=== PATIENT | male | born 1970 | race Caucasian/White ===

== ENCOUNTER 2020-11-09 08:13 | Day surgery (SDC) | payer OTHER, SELFPAY ==
[2020-09-13 09:12] VITALS: BMI 33.7
--- NOTE | 2020-11-03 14:04 | EKG12_ITS ---
Test Reason : PRE SURGERY Blood Pressure : / mmHG Vent. Rate : 080 BPM Atrial Rate : 080 BPM P-R Int : 140 ms QRS Dur : 092 ms QT Int : 392 ms P-R-T Axes : 067 058 059 degrees QTc Int : 452 ms Normal sinus rhythm with sinus arrhythmia Normal ECG Confirmed by SAMI NUR, CARLOS ([id number]), film or videotape editor ANTOINE DAHL ([id number]) on 11/04/2020 9:21:21 AM Referred By: Eleazar He Confirmed By:CARLOS GALLARDO MD
[2020-11-08 13:47] LABS: Hematocrit 44.9 % (40-54); Mean Corp Hgb Conc 33.4 g/dL (32-36); Mean Corpuscular Hgb 29.1 pg (27.0-32.0); Mean Corpuscular Volume 87.2 fL (80-94); Mean Platelet Vol. 11.6 fl (6.2-12.0); Platelet Count 244 K/mm3 (150-450); RBC Distribution Width CV 13.5 % (11.6-14.6); RBC Distribution Width SD 42.3 fl (35.1-43.9); Red Blood Count 5.15 M/mm3 (4.6-6.2); White Blood Count 8.2 K/mm3 (4.4-11.0)
[2020-11-09] VITALS (7 sets, daily range): BP systolic 135–154; BP diastolic 79–89; PULSE 77–91; RESP 16–18; TEMP 36.3–37.4; O2SAT 93–97; BMI 33.5
[2020-11-09] MEDS: Lactated Ringers 1,000 ML 100 ML IV (09:04)
[2020-11-09] MEDS: Cefazolin 2 GM in 0.9% Normal Saline 100 ML IV (09:46)
[2020-11-09] MEDS: Epinephrine (1 mg/ml) 1 MG/ML VIAL (09:46)
--- NOTE | 2020-11-09 09:47 | HP.PCM_ITS ---
History and Physical Date of Admission: 11/09/20 Intake Intake Visit Reasons: right shoulder Chief Complaint: Right Shoulder Allergies CODIENE Adverse Reaction (Mild, Uncoded 09/27/20 08:54) Hematuria [facility] Medical History HTN (hypertension) (Chronic) Surgical History H/O umbilical hernia repair (Acute) History of cholecystectomy (Acute) History of tonsillectomy (Acute) Family History Mother Myocardial infarction Liver cancer Lymph node cancer Social History (Updated 10/22/20 @ 11:[address] Eleazar He DO) household members: spouse, children housing: house Smoking Status: Current every day smoker alcohol intake: current alcohol intake frequency: a few times a week what type of physical activity do you participate in: walking do you feel safe at home: Yes HPI right shoulder: Chief Complaint: Right Shoulder Details: Parts of this documentation were recorded by a scribe, this documentation accurately reflects the service provided and the decisions made by me, Dr. Eleazar He DO 10/22/20 0801. PINEDA LUIS is a 49 year old M here today for right shoulder pain. Patient states that the pain has worsened since his last visit. States that the pain is now constant and has frequent numbness and tingling going into fingers. Patient states that the injection was helpful for a week. Patient states that his joint pain has decreased but the muscular pain has increased. Patient would like to discuss scheduling surgery since the [place] will not approve physical therapy before a surgery. Ortho Exam General General: Yes no acute distress Neurologic: Yes alert Psychologic: Yes reasonable and appropriate Right Shoulder Skin/Wound: No ecchymosis, No erythema, No swelling Testing: Positive Speed's, TTP Biceps and Rice; negative TTP AC Joint SHOULDER: Right Shoulder Skin/Wound: No ecchymosis, No erythema, No swelling Testing: Positive Hawkin's, Neer's, AROM-Forward Elevation 0-180, AROM-External Rotation at side 0-60, PROM-Forward Elevation 0-180 (with pain) and belly press normal; negative TTP Biceps, TTP AC Joint, Drop Arm, Load and Shift or jerk SHOULDER: tenderness 3cm lateal to sternoclavicular joint. sternal click bursal click Supplemental Info 06/11/2020MRI right shoulder [facility]:Moderate cuff tendinopathy and peritendinobursitis outlet related impingement secondary to AC joint hypertrophy and lateral downsloping of type II acromion. Nondisplaced type II SLAP tear with associated capsulitis. Assessment & Plan Problems 1. Impingement syndrome of right shoulder M75.41 2. Anterior to posterior tear of superior glenoid labrum of right shoulder S43.431A Plan This patient patient has ongoing symptoms from his labral tear and impingement injection only helped temporarily and he states he is not getting approval for physical therapy which was recommended by the by myself but was [facility] at [facility] point patient wishes to proceed surgically with a subacromial decompression biceps tenotomy labral debridement. Educated that he cannot take any NSAIDS a week before surgery. Educated that he will need physical therapy and we will coordinate with the [facility] for [facility]. Educated that he will start physical therapy two weeks after the surgery. Educated on the length of surgery and recovery time. Educated that he will need to be tested for Covid-19 before the surgery. Follow up 2 weeks post-op or sooner if pain, swelling, numbness or associated symptoms, or concerns develop. Coding Level of Care Code Off vis,est,level 3 Diagnoses Impingement syndrome of right shoulder M75.41 Anterior to posterior tear of superior glenoid labrum of right shoulder S43.431A I have re-examined the patient. There are no clinical changes since date of exam Procedure Criteria Procedure Type: Elective COVID Risk Discussion: The surgeon/proceduralist and patient have discussed in detail the risk of exposure to and/or potential harm posed by the COVID-19 virus with having a surgery/procedure at this time versus the risk of delaying the surgery/procedure. It is not possible to know either the risk of delaying the surgery or procedure or chance of getting an infection with perfect accuracy, but a joint decision was made between the patient and the surgeon/proceduralist to proceed at this time with the scheduled surgery/procedure as indicated on the consent form.
[2020-11-09] MEDS: Bupiv/Epi 0.5% Mpf 30 ML Vial (10:20)
[2020-11-09] MEDS: MethylPREDNISolone Acetate 40 MG/ML Vial IM (10:40)
[2020-11-09] MEDS: Bupivacaine Mpf 0.5% 30 ML VIAL (10:40)
[2020-11-09] MEDS: morphine PF (epidural) 5 MG/10 ML Vial (10:40)
--- NOTE | 2020-11-09 10:48 | PCM.DC.ORTHO ---
Discharge Diet: No Restrictions Keep extremity elevated above heart level: Operative Extremity Call your doctor if you observe: Shortness of breath, Chest pain Additional Instructions: Leave the dressing on and intact for 48 hours. Then may remove and shower with warm water and antibacterial soap. But do not submerge in tub for 3 weeks. ice shoulder 15 min on and 15 mins off next 72 hrs. May remove sling for elbow range of motion and pendulum exercises may preform active range of motion of shoulder when pain allows. discontinue sling over the course to the week as pain allow. DC completely by 1 week. Do not lift push or pull greater then 5 lbs with operative extremity. Encourage finger and wrist range of motion. If any concerns call Dr. He's office. Allergies/Adverse Reactions: Allergies codeine Allergy (Verified 11/09/20 08:33) Other HEMATURIA Medications to take at Discharge atorvastatin 20 mg tablet 20 mg PO DAILY tab 09/13/20 cholecalciferol (vitamin D3) 50 mcg (2,000 unit) tablet 1 tab PO DAILY 09/13/20 loratadine 10 mg tablet 10 mg PO DAILY 09/27/20 Albuterol IH (ProAir) [Proair Hfa (SP)Vent Pts] 1 - 2 puff INHALATION Q6H PRN PRN 11/02/20 Lisinopril [Zestril] 5 mg PO DAILY 11/02/20 Acetaminophen [Tylenol Extra Strength] 1,000 mg PO Q6H PRN #50 tab 11/09/20 Oxycodone [Oxyir] 5 mg PO Q4H PRN PRN #45 tablet 11/09/20 The following prescriptions were given: Oxycodone [Oxyir] 5 mg PO Q4H PRN PRN #45 tablet PRN Reason: Pain Score 6-10 Transmission Status: Sent to [facility] Acetaminophen [Tylenol Extra Strength] 1,000 mg PO Q6H PRN #50 tab Transmission Status: Pending to [facility] [[facility] - Test Results: Test results from this visit will be discussed in further detail at your follow-up appointment, if applicable. Please Follow Up With: Eleazar He DO - 2 weeks
--- NOTE | 2020-11-09 10:50 | PCM.OPRPT ---
Report of Operation Date of Procedure: 11/09/20 Description of Surgical Findings:: Preoperative diagnosis: [right shoulder impingement, type II SLAP tear Postoperative diagnosis: Right shoulder impingement , type II SLAP tear undersurface tearing anterior leading edge of rotator cuff supraspinatus Procedure: Arthroscopic labral debridement biceps tenotomy rotator cuff debridement subacromial decompression acromioplasty Anesthesia: General with interscalane block; EBL: 10 cc Complications: none Indication for procedure: 50-year-old male patient who has had ongoing shoulder pain who has failed extensive conservative treatment who did have MRI evidence of anterior acromial spurring with impingement on exam and radiographically as well as a type II SLAP tear. Failed injection therapy and physical therapy , patient did wish to proceed with an arthroscopic subacromial decompression biceps tenotomy labral debridement and surgery as indicated. risks benefits and alternatives of the procedure were reviewed including risk of bleeding infection nerve artery tissue damage need for further surgery continued pain postoperative stiffness and need for postoperative physical therapy and continued pain. Procedure : Patient was met in the preoperative holding area the operative extremity was identified by both the patient and the physician and was marked. Patient was met by anesthesia and brought back to the operating room on a wheeled cart. She was transferred to the operating table in the supine position. Anesthesia was started. Patient was then positioned in the beachchair configuration. Bony prominences were well-padded. The patient was prepped and draped in the usual sterile fashion. A timeout was called to ensure the proper patient procedure and extremity were being contemplated. Anatomic landmarks were palpated and marked with a marking pen. A 0.25% Marcaine with epinephrine was injected into the planned portal sites. An 11 blade scalpel was used to make a stab incision in the posterior lateral portal. Arthroscope was inserted into the glenohumeral space with ease. Inflow and outflow tubes were attached and arthroscopic visualization began. An anterior portal was established with an 18-gauge spinal needle. There was noted to be a type II SLAP tear combined with a type I peelback sign was demonstrated the labrum was debrided with a shaver and a biceps tenotomy was performed with a ArthroCare wand the arthroscope was then repositioned into the subacromial space there was significant bursal thickening as well as a large anterior acromial spur as well as spurring inferior to the clavicle decompression of bursal tissue as well as acromioplasty were performed there is large anterior acromial spurring which was removed bursal side of the cuff was evaluated and there was no full-thickness tear seen or palpated with probe probe the wound was thoroughly irrigated through the scope followed by a subacromial injection with 40 mg Depo-Medrol 4 mg of morphine and 8 cc of 0.5% Marcaine plain. Suture portals were closed with 3-0 nylon arthroscopic stitches followed by Xeroform 4 x 4 ABD and a Ioban dressing. A regular sling was placed. Anesthesia was reversed and patient tolerated the procedure well was and was transferred to the PACU all counts were correct patient will follow-up in the office in 2 weeks patient may begin active range of motion immediately
== END 2020-11-09 13:04 | disposition home or self-care (01) ==
LOC: SDC 08:14 → AC 08:14
PROVIDERS: Anesthesiology; Referring Provider Orthopaedic Surgery; Visit Provider Orthopaedic Surgery
PROC: (CPT 29827; principal; 2020-11-09 09:40)
DX: S43.431A Superior glenoid labrum lesion of right shoulder, initial encounter (principal); M75.41 Impingement syndrome of right shoulder; Z20.822 Contact with and (suspected) exposure to COVID-19; X58.XXXA Exposure to other specified factors, initial encounter; Y93.9 Activity, unspecified; Y92.9 Unspecified place or not applicable; Y99.9 Unspecified external cause status; I10 Essential (primary) hypertension; E78.00 Pure hypercholesterolemia, unspecified; F32.9 Major depressive disorder, single episode, unspecified; F17.200 Nicotine dependence, unspecified, uncomplicated
CPT/HCPCS: 29822; 29826; 64415; 36415; 85027; 87426; 93005; C9803; J7120; J2405

== ENCOUNTER → 2022-05-16 | Outpatient (CLI) | payer OTHER, SELFPAY ==
--- NOTE | 2022-05-16 07:00 | RAD_ITS ---
STUDY: X-RAY - ORBITS REASON FOR EXAM: Male, 51 years old pre MRI clearance. History of metal to eye. TECHNIQUE: 2 view(s) of the orbits were obtained. COMPARISON: Prior comparison studies are not available for review at this time. FINDINGS: Normal bilateral orbits without a metallic orbital foreign body. Normal visualized facial bones. Normal paranasal sinuses. The soft tissue structures are unremarkable. RAD/Orbits for Foreign Body IMPRESSION: No demonstrated metallic orbital foreign body. Electronically Signed: Maria Dolores Agarwal MD at 7:50 EDT ,
--- NOTE | 2022-05-16 07:05 | MRI_ITS ---
ACR Level 3 findings have been noted. An addendum which confirms receipt of the report will follow. STUDY: MRI RIGHT SHOULDER REASON FOR EXAM: Right shoulder pain, numbness, prior surgery. TECHNIQUE: Standardized fat and water weighted pulse sequences were obtained in all 3 orthogonal planes. COMPARISON: None. FINDINGS: Normal supraspinatus tendon. Normal infraspinatus tendon. Normal subscapularis tendon. Normal teres minor tendon. Normal supraspinatus muscle. Normal infraspinatus muscle. Normal subscapularis muscle. Normal teres minor muscle. Normal glenohumeral articulation. Normal humeral head and visualized proximal humerus. There is nonvisualization of the intracapsular long biceps tendon, either secondary to tear or biceps tenotomy. There is a small tear of the superior labrum (T2 coronal images 12, 13). Normal capsulo- ligamentous complex. There is no paralabral cyst. There is mild acromioclavicular arthrosis without undersurface osteophytes (T2 sagittal image 9). There is a Type II morphology (curved), with a neutral orientation. There is no subacromial-subdeltoid bursal fluid. Normal visualized coracohumeral and coracoacromial ligaments. There is an axillary lymph node measuring 2.6 cm in length. Normal deltoid muscle. Normal trapezius muscle. MRI/Upper Ext Joint Only(Routine) IMPRESSION: Nonvisualization of the intracapsular long biceps tendon, either secondary to tear or biceps tenotomy. Small superior labral tear. Mild acromioclavicular arthrosis. Enlarged axillary lymph node. No demonstrated rotator cuff tear. Electronically Signed: Temo Reddy MD at 8:41 EDT ,
== END | disposition home or self-care (01) ==
DX: M25.511 Pain in right shoulder (principal)
CPT/HCPCS: 70030; 73221

== ENCOUNTER → 2022-06-09 | Outpatient (CLI) | payer OTHER, SELFPAY ==
--- NOTE | 2022-06-09 17:47 | CT_ITS ---
EXAM: CT CHEST, ABDOMEN AND PELVIS WITH INTRAVENOUS CONTRAST CLINICAL INDICATION: ABD PAIN, RT AXILLARY ENLARGED LYMPH NODE TECHNIQUE: Helically acquired images were obtained of the chest, abdomen and pelvis with intravenous contrast. This CT exam was performed using one or more of the following dose reduction techniques: automated exposure control, adjustment of the mA and/or kV according to patient size, and/or use of iterative reconstruction technique. This report was created using [employer] report generation technology. CONTRAST: Oral and amp; IV Readi-CAT and amp; 100mL Isovue-300 RADIATION DOSE: CTDIvol = 20.05 mGy, DLP = 2186.11 mGy-cm COMPARISON: 07/27/2015 FINDINGS: CHEST: LUNGS AND PLEURAL SPACES: Unremarkable. No mass. No consolidation or edema. No pleural effusion or thickening. No pneumothorax. HEART: There are calcifications of the coronary arteries. Heart size is normal. No pericardial effusion. MEDIASTINUM: See below. THYROID: Unremarkable. No thyroid lesions. ABDOMEN: LIVER: There is intrahepatic ductal dilation. GALLBLADDER AND BILE DUCTS: The gallbladder is surgically absent. PANCREAS: Unremarkable. No focal cystic or solid mass. SPLEEN: Unremarkable. Normal size without focal cystic or solid mass. ADRENALS: Unremarkable. No nodules. KIDNEYS AND URETERS: Unremarkable. Normal renal size and position. No hydronephrosis. STOMACH AND BOWEL: There is an umbilical hernia containing fat. There is no bowel involvement. There is no incarceration. There is no findings suggesting that this is causing a bowel obstruction. There is a left inguinal hernia containing fat. There is no bowel involvement. There is no incarceration. There is no findings suggesting that this is causing a bowel obstruction. No focal inflammatory change. PELVIS: APPENDIX: The appendix is visualized and is normal. BLADDER: Unremarkable. REPRODUCTIVE: Unremarkable as visualized. No mass. CHEST, ABDOMEN and PELVIS: INTRAPERITONEAL SPACE: Unremarkable. No ascites or other fluid collection. No free air. BONES/JOINTS: There are degenerative changes of the shoulders. There are multi-level degenerative changes of the thoracic spine. No suspicious lytic or blastic abnormality. SOFT TISSUES: See above. VASCULATURE: There is atherosclerotic calcification of the aortic arch with tortuosity and elongation of the aortic arch and descending thoracic aorta. Aorta is non-dilated. No aortic dissection. No obvious central pulmonary embolism although this study was not performed with the pulmonary embolism protocol. LYMPH NODES: Right and left axillary adenopathy. Multiple subcentimeter lymph nodes in the mediastinum. These may be reactive. CT/CT Chest, Abd, Pel w/Contrast IMPRESSION: 1. There are calcifications of the coronary arteries. 2. Right and left axillary adenopathy. 3. The gallbladder is surgically absent. Electronically Signed: Te Villanueva MD at 21:04 EDT ,
[2022-06-12 09:48] LABS: CREATININE FINGERSTICK 1.19 mg/dL (0.70-1.30); EGFR FINGERSTICK > 60 mL/min (>60)
== END | disposition home or self-care (01) ==
LOC: CT 17:44
DX: R59.0 Localized enlarged lymph nodes (principal)
CPT/HCPCS: 71260; 74177; Q9967

== ENCOUNTER → 2022-08-28 | Outpatient (CLI) | payer OTHER, SELFPAY ==
--- NOTE | 2022-08-28 11:23 | MRI_ITS ---
EXAM: MR CERVICAL SPINE WITHOUT INTRAVENOUS CONTRAST CLINICAL INDICATION: MYELOPATHY TECHNIQUE: Multiplanar and multisequence MR images of the cervical spine without intravenous contrast were performed. This report was created using [employer] report generation technology. COMPARISON: None. FINDINGS: VERTEBRAE: Loss of the normal cervical lordosis which may be due to muscle spasm or head positioning. Normal craniocervical junction and cervicothoracic junction. No spondylolisthesis. SPINAL CORD: Unremarkable in signal and morphology. SOFT TISSUES: Normal. No prevertebral soft tissue swelling. LYMPH NODES: Normal. There is no cervical adenopathy. DISCS/SPINAL CANAL/NEURAL FORAMINA: C2-C3: Normal. Normal disc height and morphology. Normal spinal canal. Normal neuroforamina. C3-4 Central disc protrusion causes mild impression on the thecal sac. Moderate narrowing of the right neural foramen related to uncinate joint hypertrophy. Normal spinal canal. C4-5: Mild narrowing of the right neural foramen related to uncinate joint hypertrophy. Normal spinal canal. C5-6: Prominent right central disc osteophyte complex causes [id number] compression of the thecal sac and severe narrowing of the right neural foramen. Normal spinal canal. C6-7: Left central disc osteophyte complex causes mild narrowing of the left lateral recess and mild/moderate narrowing of the left neural foramen. C7-T1: Normal. Normal disc height and morphology. Normal spinal canal. Normal neuroforamina. MRI/Spine Cervical (Routine) IMPRESSION: 1. Moderate narrowing of the right C3-4 and mild narrowing of the right C4-5 neural foramina related to uncinate joint hypertrophy. 2. Mild to moderate C5-6 spinal stenosis and severe right C5-6 neural foraminal narrowing related to large disc osteophyte complex. 3. Mild narrowing of the left C6-7 lateral recess and mild to moderate narrowing of the left C6-7 neural foramen related to disc osteophyte complex. 4. No evidence of cervical cord lesion. Electronically Signed: Josue Rain MD at 16:57 EST ,
== END | disposition home or self-care (01) ==
LOC: MRI 10:59
DX: M54.2 Cervicalgia (principal)
CPT/HCPCS: 72141

== ENCOUNTER → 2023-08-29 | Outpatient (CLI) | payer OTHER, SELFPAY ==
--- NOTE | 2023-08-29 07:45 | CT_ITS ---
STUDY: LOW DOSE CT LUNG CANCER SCREENING REASON FOR EXAM: Male, 52 years old. TOBACCO DEPENDANCE. Patient smoked 1 pack per day for 20 years. RADIATION DOSAGE (If Supplied By Facility): CTDIvol = ( 4.02 ) mGy, DLP = ( 145.47 ) mGycm TECHNIQUE: No contrast was administered. Low dose technique was utilized (average mAS-38 and kVp 120). 1.25 mm axial source images with a slice interval of 1.25-mm were reconstructed in lung windows. 2.5 mm axial source images with a slice interval of 2.5-mm were reconstructed in lung windows. 5.0 mm axial source images with a slice interval of 5.0-mm were reconstructed in soft tissue windows. COMPARISON: Comparison is made with prior study June 09, 2022. NODULES: No suspicious nodules are seen. Emphysema: No significant emphysematous changes are seen. Endobronchial lesion: Unremarkable Aorta: Unremarkable. CORONARY ARTERIES: Coronary artery calcification is seen. Heart: Unremarkable Pulmonary artery: Unremarkable Mediastinal nodes: Small mediastinal nodes. Other chest and abdominal findings: CT/Low Dose CT Lung Screening IMPRESSION: Lung-RADS category 2 - Continue annual screening with LDCT in 12 months. IMPORTANT NOTES FOR USE: ACR Lung-RADS Version 1.1 Assessment Categories Release Date: 2018 Category: Coded 0-4 bases on nodule(s) with highest degree of suspicion. Negative screen is defined as categories 1 and 2; a positive screen is defined as categories 3 and 4. Category 3 and 4A nodules that are unchanged on interval CT should be coded as category 2, and individuals returned to screening in 12 months. Category 4X: Category 3 or 4 nodules with additional imaging findings that increase the suspicion of lung cancer, such as spiculation, GGN that doubles in size in 1 year, enlarged lymph notes, etc. Category Modifiers: S (significant finding unrelated to lung cancer) Electronically Signed: Jacinto Hutchinson MD at 15:02 EST ,
== END | disposition home or self-care (01) ==
DX: F17.200 Nicotine dependence, unspecified, uncomplicated (principal); E11.9 Type 2 diabetes mellitus without complications; I10 Essential (primary) hypertension; Z79.84 Long term (current) use of oral hypoglycemic drugs; Z79.899 Other long term (current) drug therapy
CPT/HCPCS: 71271

== ENCOUNTER → 2023-09-26 | Outpatient (CLI) | payer OTHER, SELFPAY ==
--- OUTSIDE RECORDS SUMMARY | 2023-09-26 11:33 | XMS RPT_ITS | CCD ---
Author Name Unknown Address [address] [place] [address] Organization [facility] Care Team Providers Care Lapel Padder Name Role Phone Unavailable Unavailable Unavailable BETH SINGH Unavailable Unavailable BETH SINGH Unavailable Unavailable ASHLEE BARTLETT Unavailable Unavailable BETH SINGH Unavailable Unavailable BETH SINGH Unavailable Unavailable BETH SINGH Unavailable Unavailable Unavailable Primary Care Provider Unavailabl e Unavailable Primary Care Provider Unavailabl e Unavailable Primary Care Provider Unavailabl e LUCERO LEA Referring Unavai lable MIDDELDORF, LUCERO LI Referring Unavai lable MIDDELDORF, LUCERO LI Referring Unavai lable Allergies Allergy Classification Reported Allergen(s) Allergy Type Date of Onset Reaction(s) Facility (10 sources) codeine; Translations: [CODEINE] Drug Allergy 09-01-2005 Other (See Comments), Other: See Comments [facility] Medications Current Medications Medication Drug Class(es) Dates Sig (Normalized) Sig (Original) predniSONE 20 mg oral tablet (1 source) Start: 01-31-2022 End: 02-05-2022 take 2 tablets by mouth once daily predniSONE (DELTASONE) 20 mg tablet Take 2 tablets by mouth once daily for 5 days. 10 tablet 0 01/31/2022 02/05/2022 Active Completed/Discontinued Medications Medication Drug Class(es) Dates Sig (Normalized) Sig (Original) amLODIPine 5 mg oral tablet (4 sources) Dihydropyridine Calcium Channel Brenda Start: 12-07-2021 amLODIPine (NORVASC) 5 mg tablet atorvastatin 20 mg oral tablet (4 sources) HMG-CoA Reductase Inhibitor Start: 12-07-2021 atorvastatin (LIPITOR) 20 mg tablet benzonatate 100 mg oral capsule (6 sources) Non-narcotic Antitussive Start: 01-31-2022 benzonatate (TESSALON PERLE) 100 mg capsule Take 1-2 capsules tid prn, no more than 6 in 24 hours. 30 capsule 0 01/31/2022 Active Problems Active Problems Problem Classification Problem Date Documented Date Episodic/Chronic Anxiety disorders (5 sources) Posttraumatic stress disorder; Translations: [Post-traumatic stress disorder, unspecified] Onset: 05-07-2015 05-07-2015 Chronic Chronic obstructive pulmonary disease and bronchiectasis (5 sources) Acute exacerbation of chronic obstructive airways disease with asthma; Translations: [Chronic obstructive pulmonary disease with (acute) exacerbation] Onset: 10-02-2016 10-02-2016 Chronic Chronic obstructive pulmonary disease and bronchiectasis (4 sources) Bronchitis; Translations: [Bronchitis, not specified as acute or chronic] Onset: 08-29-2022 Episodic Essential hypertension (5 sources) Hypertensive disorder; Translations: [Essential (primary) hypertension] Onset: 05-07-2015 05-07-2015 Chronic Other circulatory disease (1 source) Pulmonary congestion ; Translations: [Other specified symptoms and signs involving the circulatory and respiratory systems] Episodic Other lower respiratory disease (1 source) Cough; Translations: [Cough] Episodic Other lower respiratory disease (1 source) Wheezing; Translations: [Wheezing] Episodic Other male genital disorders (1 source) Azoospermia Episodic Other male genital disorders (4 sources) Other male infertility; 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] Onset: 07-03-2018 Episodic Other male genital disorders (2 sources) Organic azoospermia; 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] Onset: 07-03-2018 Episodic Other upper respiratory disease (5 sources) Seasonal allergy; Translations: [Other seasonal allergic rhinitis] Onset: 05-07-2015 05-07-2015 Chronic Residual codes; unclassified (5 sources) Obstructive sleep apnea syndrome; Translations: [Obstructive sleep apnea (adult) (pediatric)] Onset: 05-07-2015 09-19-2021 Chronic Substance-related disorders (5 sources) Smoker; Translations: [Nicotine dependence, unspecified, uncomplicated] Onset: 05-07-2015 09-19-2021 Chronic Unclassified (1 source) Unknown / UNK(Unknown) Onset: 07-23-2018 Past or Other Problems Problem Classification Problem Date Documented Date Episodic/Chronic Biliary tract disease (5 sources) Chronic cholecystitis without calculus; Translations: [Chronic cholecystitis] Onset: 07-21-2015 07-21-2015 Episodic Conditions associated with dizziness or vertigo (5 sources) Vertigo; Translations: [Dizziness and giddiness] Onset: 05-07-2015 05-07-2015 Episodic Immunizations and screening for infectious disease (5 sources) Mantoux: positive; Translations: [Nonspecific reaction to tuberculin skin test without active tuberculosis] Onset: 05-07-2015 05-07-2015 Episodic Neoplasms of unspecified nature or uncertain behavior (5 sources) Neoplasm of uncertain behavior of skin of neck; Translations: [Neoplasm of uncertain behavior of skin] Onset: 05-07-2015 05-07-2015 Episodic Other ear and sense organ disorders (5 sources) Tinnitus; Translations: [Tinnitus, unspecified ear] Onset: 05-07-2015 05-07-2015 Episodic Other skin disorders (5 sources) Vesicular eczema; Translations: [Dyshidrosis [pompholyx]] Onset: 05-07-2015 05-07-2015 Episodic Other upper respiratory disease (5 sources) Nasal deviation, bone; Translations: [Deviated nasal septum] Onset: 05-07-2015 05-07-2015 Episodic Unclassified (1 source) 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 Unclassified (1 source) OBSTRUCTIVE 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 Onset: 07-23-2018 Results Test Name Value Interpretation Reference Range Facil ity Vital Signs Date Time Vital Sign Value Performing Clinician Eunice edouard 01-31-2022 19:25-0400 Body temperature 98.6 [degF] Mali Tomlinson APRN.TOW TRUCK DRIVER Work Phone: [facility] 01-31-2022 19:25-0400 Body weight 111.31 kg Mali Tomlinson APRN.AILYN Work Phone: [facility] 01-31-2022 19:25-0400 Diastolic blood pressure 82 mm[Hg] Mali Tomlinson APRN.TOW TRUCK DRIVER Work Phone: [facility] 01-31-2022 19:25-0400 Heart rate 99 /min Mali Tomlinson APRN.CNP Work Phone: [facility] 01-31-2022 19:25-0400 Respiratory rate 18 /min Mali Tomlinson APRN.TOW TRUCK DRIVER Work Phone: [facility] 01-31-2022 19:25-0400 SaO2% (BldA) [Mass fraction] 96 % Mali Tomlinson APRN.TOW TRUCK DRIVER Work Phone: [facility] 01-31-2022 19:25-0400 Systolic blood pressure 136 mm[Hg] Mali Tomlinson APRN.TOW TRUCK DRIVER Work Phone: [facility] 07-03-2018 13:28-0400 BMI (Body Mass Index) 32.08 kg/m2 [facility] 07-03-2018 13:28-0400 BP Diastolic 91 mm[Hg] [facility] 07-03-2018 13:28-0400 BP Systolic 143 mm[Hg] [facility] 07-03-2018 13:28-0400 Height 180.3 cm [facility] 07-03-2018 13:28-0400 Pulse (Heart Rate) 90 /min [facility] 07-03-2018 13:28-0400 Weight 104.33 kg [facility] Encounters Encounter Date Encounter Type Care Provider Facility Start: 08-29-2022 End: 08-29-2022 ambulatory LUCERO LEA Pulmonary Funct ion Lab Procedures Date Procedure Procedure Detail Performing Clinician Start: 08-29-2022 Brncdilat rspse spmt ry pre&post-brncdilat admn Provider [facility] Start: 11-23-2021 CT LUNG SCREEN DAVID Wynne Work Phone: Start: 06-16-2016 Adult depression screening assessment Provider [facility] Plan of Treatment Date Care Activity Detail Author Start: 02-24-2023 Tetanus vaccination Tetanus: Every 10yrs [facility] Start: 02-24-2023 Urine microalbumin profile DTAP,TDAP,TD (2 - Td or Tdap) [facility] Start: 11-23-2022 Influenza vaccination LUNG CANCER SCREENING [facility] Start: 05-25-2022 Influenza vaccination [facility] Start: 01-31-2022 End: 02-14-2022 Influenza virus A and B RNA and SARS-CoV-2 (COVID-19) N gene panel - Respiratory specimen by MANE with probe detection COVID WITH FLUA+B, ROUTINE Microbiology Routine Cough Chest congestion Expected: 01/31/2022, Expires: 02/14/2022 [facility] Work Phone: Immunizations Immunization Date Immunization Notes Care Provider Marlen wilks 02-24-2013 tetanus toxoid, redu jigar diphtheria toxoid, and acellular pertussis vaccine, adsorbed Provider [facility] Work Phone: Payers Date Payer Category Payer Unknown [id number] 2021 Unknown [id number] 2019 Unknown 2019 Unknown MMO MMO [employer] [id number] 2019-Present [phone] [address] [place] [address] PPO [id number] 2019 Unknown [id number] 1970 Unknown [id number] 1970 Unknown [id number] 1970 Unknown [id number] Unknown [id number] Social History Date Type Detail Facility Start: 07-13-2015 End: 07-03-2018 Tobacco smoking status NHIS Current every day smoker [facility] Work Phone: History of tobacco use Cigar Smoker [facility] Start: 1970 Sex Assigned At Not on file [facility] Start: 07-13-2015 End: 07-03-2018 Tobacco use and exposure Never used [facility] Start: 07-03-2018 End: 01-31-2022 Alcohol intake Current drinker of alcohol (finding) [facility] Start: 07-03-2018 [facility] Start: 05-07-2015 End: 01-31-2022 Cigarettes smoked current (pack per day) - Reported 1 [facility] Start: 07-13-2015 History SDOH Alcohol Comment 2-3 beers/week [facility] Start: 01-21-2022 End: 01-31-2022 Exposure to SARS-CoV-2 (event) Not sure [facility] Work Phone: History of tobacco use Cigarette Smoker [facility] Work Phone: Progress note 08-29-2022 Note Date & Type Note Facility 08-29-2022 Note HNO ID: [id number] Author: Thelma Coffey RRT Service: ? Author Type: Registered Resp Therapist Type: Progress Notes Filed: 08/29/2022 11:58 AM Note Text: PULM FUNCTION SMARTBLOCK: Spirometry w/BD: 1 DLCO: 1 LV - Box: 1 [facility] History of Present illness Narrative 08-29-2022 Thelma Coffey RRT - 08/29/2022 11:57 AM EST Note Date & Type Note Facility 08-29-2022 History of Presen t illness Narrative PULM FUNCTION SMARTBLOCK: Spirometry w/BD: 1 DLCO: 1 LV - Box: 1 documented in this encounter [facility] Influenza virus A and B RNA and SARS-CoV-2 (COVID-19) N gene panel MANE+probe (Resp) 01-31-2022 Note Date & Type Note Facility 01-31-2022 Influenza virus A and B RNA and SARS-CoV-2 (COVID-19) N gene panel MANE+probe (Resp) COVID 19 RESULT: SARS-CoV-2 (Agent of COVID-19) Not Detected by RT-PCR or equivalent method. leigh [id number] [employer] (ROYA)_EUA This test was developed and its performance characteristics determined by [facility]'s [facility] [place]. This test has been authorized by FDA under an Emergency Use Authorization (EUA). This test has been validated in accordance with the FDA's Guidance Document Policy for Diagnostics Testing in Laboratories Certified to Perform High Complexity Testing under CLIA prior to Emergency use Authorization for Coronavirus Disease 2019 during the Public Health Emergency issued on November 22, 2019. Test performed by [facility], [facility] [place], [address], [place], [place] [address]. INFLUENZA A PCR: Negative for Influenza A by RT-PCR INFLUENZA B PCR: Negative for Influenza B by RT-PCR [facility] Progress note 01-31-2022 Note Date & Type Note Facility 01-31-2022 Note HNO ID: [id number] Author: Mali Tomlinson APRN.TOW TRUCK DRIVER Service: ? Author Type: Nurse Practitioner Type: Progress Notes Filed: 01/31/2022 8:07 PM Note Text: Subjective The history is provided by the patient. No test engineering intern was used. HPI Pineda Mills is a 51 year old male who presents today for CC of cough, chest congestion and body aches. He has tried sudafed, mucinesx without relief. He is a smoker. He does have an albuterol inhaler and has not used it. He has never been diagnosed with COPD BP 136/82 Pulse 99 Temp 37 ?C (98.6 ?F) (Tympanic) Resp 18 Wt 111.3 kg (245 lb 6.4 oz) SpO2 96% BMI 34.23 kg/m? Social History Tobacco Use - Smoking status: Current Every Day Smoker Packs/day: 1.00 Years: 35.00 Pack years: 35.00 - Smokeless tobacco: Never Used Substance Use Topics - Alcohol use: Yes Alcohol/week: 2.5 standard drinks Types: 1 Cans of Beer (12oz) per week Comment: 2-3 beers/week - Drug use: No PAST MEDICAL HISTORY Diagnosis Date - Asthma - Deviated nasal bone 05/07/2015 - Eczema, dyshidrotic 05/07/2015 - HTN (hypertension) 05/07/2015 - Obstructive sleep apnea 05/07/2015 On CPAP - Positive PPD, treated 05/07/2015 - PTSD (post-traumatic stress disorder) 05/07/2015 - Seasonal allergies 05/07/2015 - Smoker 05/07/2015 Started at age 14 up to a 1 PPD (had quit for about 10 yrs) I have confirmed and edited as necessary, the [facility] Review of Systems Constitutional: Positive for malaise/fatigue. Negative for chills and fever. HENT: Positive for congestion and sinus pain. Negative for ear pain and sore throat. Respiratory: Positive for cough, shortness of breath and wheezing. Negative for sputum production. Cardiovascular: Negative for chest pain. Gastrointestinal: Negative for abdominal pain, diarrhea, nausea and vomiting. Musculoskeletal: Negative for myalgias. Neurological: Negative for headaches. Objective Physical Exam Vitals and nursing note reviewed. HENT: Head: Normocephalic and atraumatic. Right Ear: Tympanic membrane, ear canal and external ear normal. Left Ear: Tympanic membrane, ear canal and external ear normal. Nose: No mucosal edema or rhinorrhea. Right Sinus: No maxillary sinus tenderness or frontal sinus tenderness. Left Sinus: No maxillary sinus tenderness or frontal sinus tenderness. Mouth/Throat: Pharynx: Uvula midline. No oropharyngeal exudate or posterior oropharyngeal erythema. Tonsils: No tonsillar abscesses. Cardiovascular: Rate and Rhythm: Normal rate and regular rhythm. Heart sounds: Normal heart sounds. Pulmonary: Effort: Pulmonary effort is normal. Breath sounds: Wheezing present. No decreased breath sounds, rhonchi or rales. Lymphadenopathy: Head: Right side of head: No submental, submandibular, tonsillar or preauricular adenopathy. Left side of head: No submental, submandibular, tonsillar or preauricular adenopathy. Cervical: No cervical adenopathy. Right cervical: No superficial cervical adenopathy. Left cervical: No superficial cervical adenopathy. ASSESSMENT/PLAN: 1. Cough - ICD9: 786.2, ICD10: R05.9 (primary diagnosis) Tiana barber as prescribed Home isolation Testing ordered Comfort measures discussed - see patient instructions. When to seek higher level of care Notified in 24-48 hours with results, available on mychart - COVID WITH FLUA+B, ROUTINE 2. Chest congestion - ICD9: 786.9, ICD10: R09.89 mucinex - COVID WITH FLUA+B, ROUTINE 3. Wheezing - ICD9: 786.07, ICD10: R06.2 Prednisone 40 mg (2-20mg tablets) po QD for 5 days Albuterol inhaler Diagnosis and treatment plan were discussed and questions were answered to the patient's satisfaction. Pt acknowledged understanding of concepts and follow up plan. Specific signs and symptoms that would indicate the need for higher level of care were discussed in detail warranting prompt ER evaluation. Mali Tomlinson APRN.CNP [facility] 01-31-2022 Patient Instructions Note Date & Type Note Facility 01-31-2022 Instructions Mali Tomlinson APRN.CNP - 01/31/2022 7:58 PM EDT covid test ordered You will be notified in 24 -48 hours, results available on [facility] Home isolation until covid results are back Rest, increase water intake Motrin or Tylenol as needed for fever or pain. Salt water gargles, chloraseptic spray or lozenges as needed for sore throat. Warm beverages, honey. Nasal saline spray as needed Cool mist humidifier at night Tylenol (generic acetaminophen) 500 mg-2 tabs every 8 hrs. as needed for fever and aches Ibuprofen 600 mg (3-200mg tablets) every 6 hours * Prednisone 40 mg (2 tablets) per day for 5 days, take in morning or early in day * Do not NSAIDs during this 5 day course (ibuprofen, naproxen, Motrin, Aleve, Advil) Tylenol only during prednisone use * Follow up with primary care provider if no improvement with treatment Albuterol inhaler 2 puffs every 4 hours Tessalon Perles 1-2 every 8 hours, do not combine this with robitussin or delsym * Seek medical care immediately, call 911, go to ER if you have chest pain, difficulty breathing, shortness of breath, inability to swallow. -Mucinex (generic is fine) Guaifenesin 1200 mg twice daily to help with cough and to thin out mucus * Seek medical care immediately, call 911, go to ER if you have chest pain, difficulty breathing, shortness of breath, inability to swallow. documented in this encounter [facility] History of Present illness Narrative 01-31-2022 Mali Tomlinson APRN.CNP - 01/31/2022 7:54 PM EDT Note Date & Type Note Facility 01-31-2022 History of Presen t illness Narrative Subjective The history is provided by the patient. No test engineering intern was used. HPI Pineda Mills is a 51 year old male who presents today for CC of cough, chest congestion and body aches. He has tried sudafed, mucinesx without relief. He is a smoker. He does have an albuterol inhaler and has not used it. He has never been diagnosed with COPD BP 136/82 Pulse 99 Temp 37 C (98.6 F) (Tympanic) Resp 18 Wt 111.3 kg (245 lb 6.4 oz) SpO2 96% BMI 34.23 kg/m Social History Tobacco Use Smoking status: Current Every Day Smoker Packs/day: 1.00 Years: 35.00 Pack years: 35.00 Smokeless tobacco: Never Used Substance Use Topics Alcohol use: Yes Alcohol/week: 2.5 standard drinks Types: 1 Cans of Beer (12oz) per week Comment: 2-3 beers/week Drug use: No 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/07/2015 Eczema, dyshidrotic 05/07/2015 HTN (hypertension) 05/07/2015 Obstructive sleep apnea 05/07/2015 On CPAP Positive PPD, treated 05/07/2015 PTSD (post-traumatic stress disorder) 05/07/2015 Seasonal allergies 05/07/2015 Smoker 05/07/2015 Started at age 14 up to a 1 PPD (had quit for about 10 yrs) I have confirmed and edited as necessary, the [facility] Review of Systems Constitutional: Positive for malaise/fatigue. Negative for chills and fever. HENT: Positive for congestion and sinus pain. Negative for ear pain and sore throat. Respiratory: Positive for cough, shortness of breath and wheezing. Negative for sputum production. Cardiovascular: Negative for chest pain. Gastrointestinal: Negative for abdominal pain, diarrhea, nausea and vomiting. Musculoskeletal: Negative for myalgias. Neurological: Negative for headaches. Objective Physical Exam Vitals and nursing note reviewed. HENT: Head: Normocephalic and atraumatic. Right Ear: Tympanic membrane, ear canal and external ear normal. Left Ear: Tympanic membrane, ear canal and external ear normal. Nose: No mucosal edema or rhinorrhea. Right Sinus: No maxillary sinus tenderness or frontal sinus tenderness. Left Sinus: No maxillary sinus tenderness or frontal sinus tenderness. Mouth/Throat: Pharynx: Uvula midline. No oropharyngeal exudate or posterior oropharyngeal erythema. Tonsils: No tonsillar abscesses. Cardiovascular: Rate and Rhythm: Normal rate and regular rhythm. Heart sounds: Normal heart sounds. Pulmonary: Effort: Pulmonary effort is normal. Breath sounds: Wheezing present. No decreased breath sounds, rhonchi or rales. Lymphadenopathy: Head: Right side of head: No submental, submandibular, tonsillar or preauricular adenopathy. Left side of head: No submental, submandibular, tonsillar or preauricular adenopathy. Cervical: No cervical adenopathy. Right cervical: No superficial cervical adenopathy. Left cervical: No superficial cervical adenopathy. ASSESSMENT/PLAN: 1. Cough - ICD9: 786.2, ICD10: R05.9 (primary diagnosis) Tescarole perldinesh as prescribed Home isolation Testing ordered Comfort measures discussed - see patient instructions. When to seek higher level of care Notified in 24-48 hours with results, available on mychart - COVID WITH FLUA+B, ROUTINE 2. Chest congestion - ICD9: 786.9, ICD10: R09.89 mucinex - COVID WITH FLUA+B, ROUTINE 3. Wheezing - ICD9: 786.07, ICD10: R06.2 Prednisone 40 mg (2-20mg tablets) po QD for 5 days Albuterol inhaler Diagnosis and treatment plan were discussed and questions were answered to the patient's satisfaction. Pt acknowledged understanding of concepts and follow up plan. Specific signs and symptoms that would indicate the need for higher level of care were discussed in detail warranting prompt ER evaluation. Mali Tomlinson APRN.AILYN documented in this encounter [facility] Evaluation note Note Date & Type Note Facility documented in this encounter [facility] Evaluation note Note Date & Type Note Facility documented in this encounter [facility] Evaluation note Note Date & Type Note Facility documented in this encounter [facility] Assessments Diagnosis 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 - Primary 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s Azoospermatism Azoospermia Summary Purpose Family History No Family History Records FoundNo Family History Records FoundNo Family History Records FoundNo Family History Records FoundNo Family History Records Found Advance Directives No Advanced Directives Records FoundDocuments on File Type Date Recorded Patient Fryline Attendant Expl anation Advance Directive(s) 11/10/2016 5:47 AM Additional Source Comments (unrecognized sect ion and content) No Status Records FoundNo Status Records FoundNo Status Records FoundNo Status Records FoundNo Status Records Found INFORMATION SOURCE (unrecogn ized section and content) DATE CREATED AUTHOR AUTHOR'S ORGANIZ ATION 08/09/2018 [facility] DATE CREATED AUTHOR AUTHOR'S ORGANIZ ATION 11/29/2021 [facility] DATE CREATED AUTHOR AUTHOR'S ORGANIZ ATION 02/02/2022 [facility] DATE CREATED AUTHOR AUTHOR'S ORGANIZ ATION 08/30/2022 [facility] nter Source Comments (unrecognize d section and content) In the event this informatio n is protected by the Federal Confidentiality of Alcohol and Drug Abuse Patient Records regulations: The Federal rules restrict any use of the information to criminally investigate or prosecute any alcohol or drug abuse patient[facility] the event this information is protected by the Federal Confidentiality of Alcohol and Drug Abuse Patient Records regulations: The Federal rules restrict any use of the information to criminally investigate or prosecute any alcohol or drug abuse patient.[facility] the event this information is protected by the Federal Confidentiality of Alcohol and Drug Abuse Patient Records regulations: The Federal rules restrict any use of the information to criminally investigate or prosecute any alcohol or drug abuse patient.[facility] the event this information is protected by the Federal Confidentiality of Alcohol and Drug Abuse Patient Records regulations: The Federal rules restrict any use of the information to criminally investigate or prosecute any alcohol or drug abuse patient.[facility] the event this information is protected by the Federal Confidentiality of Alcohol and Drug Abuse Patient Records regulations: The Federal rules restrict any use of the information to criminally investigate or prosecute any alcohol or drug abuse patient.[facility] Reason for Visit (unrecogniz ed section and content) Reason Comments Spirometry Specialty Diagnoses / Procedures Referred By Contac t Referred To [facility] RESPIRATORY ATHOL Diagnoses Bronchitis, not specified as acute or chronic Procedures SPIROMETRY - BASELINE AND POST DILATOR BRNCDILAT RSPSE SPMTRY PRE&POST-BRNCDILAT ADMN [facility], Provider NON-STAFF PROVIDER Res[facility] [place] [address] [place] [address] Referral ID Status Reason Start Date Expiration Date V isits Requested Visits Authorized [id number] Closed Auto-Generate d Referral 08/13/2022 09/23/2022 1 1 Specialty Diagnoses / Procedures Referred By Contac t Referred To [facility] RESPIRATORY ATHOL Diagnoses Bronchitis, not specified as acute or chronic Procedures LUNG VOLUMES [facility], Provider NON-STAFF PROVIDER [address] [place] [address] Referral ID Status Reason Start Date Expiration Date V isits Requested Visits Authorized [id number] Closed Auto-Generate d Referral 08/13/2022 09/23/2022 1 1 Specialty Diagnoses / Procedures Referred By Contac t Referred To Contact [facility] Diagnoses Bronchitis, not specified as acute or chronic Procedures LUNG DIFFUSION CAPACITY (DLCO) DIFFUSING CAPACITY [facility], Provider NON-STAFF PROVIDER [address] [place] [address] Referral ID Status Reason Start Date Expiration Date V isits Requested Visits Authorized [id number] Closed Auto-Generate d Referral 08/13/2022 09/23/2022 1 1 FOR RECORDS PERTAINING TO PATIENTS WHO ARE OR HAVE BEEN ENROLLED IN A CHEMICAL DEPENDENCY/SUBSTANCEABUSE PROGRAM, SOME INFORMATION MAY BE OMITTED. This clinical summary was aggregated from multiple sources. Caution should be exercised in using it in the provision of clinical care. This summary normalizes information from multiple sources, and as a consequence, information in this document may materially change the coding, format and clinical context of patient data. In addition, data may be omitted in some cases. CLINICAL DECISIONS SHOULD BE BASED ON THE PRIMARY CLINICAL RECORDS. [employer] provides no warranty or guarantee of the accuracy or completeness of information in this document.
--- NOTE | 2023-09-26 12:17 | NEURO_ITS ---
NCS and/or EMG Patient Report Ordering Doctor: Elio Prieto DATE OF SERVICE: 09/26/23 Refugio presents for electrodiagnostic testing of the right upper limb. He reports numbness and tingling in the right hand. He reports neck pain radiating into the right upper limb. Electrodiagnostic findings: Right median motor nerve demonstrates normal distal latency and amplitude with borderline reduced conduction velocity. Normal right ulnar motor response. Borderline prolonged right median F wave. Mildly prolon ged right median sensory latency at the wrist. Normal ulnar and radial sensory responses. Needle EMG testing was performed in the right upper limb. All muscles tested showed no evidence of denervation with normal motor unit action potentials. Electrodiagnostic assessment: This is an abnormal study in the right upper limb 1. Electrodiagnostic findings suggestive right-sided median mononeuropathy. This is consistent with a mild right carpal tunnel syndrome. 2. No electrodiagnostic evidence is noted for cervical radiculopathy. 3. No electrodiagnostic evidence is noted for ulnar neuropathy, including cubital tunnel syndrome. Multi Select Codes Neurology Neurology Interp Codes: 74132-87 Musc test done w/n test comp (interp) and 93826-58 Nrv cndj test 7-8 studies (interp)
== END | disposition home or self-care (01) ==
LOC: PSN 09:57
PROVIDERS: Referring Provider Anesthesiology; Visit Provider Anesthesiology
DX: M54.12 Radiculopathy, cervical region (principal)
CPT/HCPCS: 95910

== ENCOUNTER 2024-02-25 11:18 | Emergency (ER) | payer OTHER, SELFPAY ==
[2024-02-25 11:18] VITALS: BP 139/90; PULSE 87; RESP 16; TEMP 36.3; O2SAT 100; BMI 32.6
--- NOTE | 2024-02-25 11:44 | CT_ITS ---
STUDY: CT ABDOMEN AND PELVIS WITH CONTRAST REASON FOR EXAM: Male, 53 years old. RLQ pain, diarrhea RADIATION DOSAGE (If Supplied By Facility): CTDIvol = ( 16.28 ) mGy, DLP = ( 1221.70 ) mGycm TECHNIQUE: Transaxial images were obtained from the dome of the diaphragm to the symphysis pubis without oral contrast. IV 100mL Isovue-300 was administered. Sagittal and coronal images were reconstructed. Individualized dose optimization techniques were used for this CT. COMPARISON: Comparison is made with prior study dated July 27, 2015. FINDINGS: The visualized lung bases are unremarkable. Coronary artery calcification. There is decreased attenuation of the liver consistent with steatosis. Mild degree of central intrahepatic biliary ductal dilatation. The patient is status post cholecystectomy. Normal spleen. Normal pancreas. Normal bilateral adrenal glands. Normal right kidney. Normal left kidney. Normal visualized stomach. Normal small intestine. There is evidence of a mild degree of diffuse colitis down to the rectum. The appendix is visualized and appears normal. There is scattered atherosclerotic calcification of the abdominal aorta, without a demonstrated aneurysm. Normal inferior vena cava. There is borderline retroperitoneal lymphadenopathy with enlarged nodes no greater than 10mm in the short axis diameter. Normal urinary bladder. Normal abdominal wall. There are degenerative changes of the visualized lumbar spine. CT/Abdomen/Pelvis W IV Cont ONLY IMPRESSION: Treadwell colitis. Status post cholecystectomy. Mild degree of central intrahepatic biliary ductal dilatation. Electronically Signed: Jacinto Hutchinson MD at 13:18 EDT ,
--- NOTE | 2024-02-25 11:47 | ED.VIS.GI ---
HPI <LIZA Agrawal - Last Filed: 02/25/24 14:28> HPI - GI History of Present Illness Chief Complaint: Abd Pain Narrative Narrative: Patient presenting today with multiple bouts of loose stools he has had since Sunday. He also reports that he has had a cramping intermittent right lower quadrant abdominal pain that radiates to his lower back. He denies any history of diverticulitis. He did feel feverish on Sunday and has had intermittent sweats. Today he noticed decreased urination and feels dehydrated. Previous abdominal surgeries include cholecystectomy and hernia repair. He denies any melena, hematochezia, dysuria, nausea, and vomiting. He has a PMH of HTN, HLD, and asthma. PFSH <LIZA Agrawal - Last Filed: 02/25/24 14:28> PFSH Medical History Contact with and (suspected) exposure to other viral communicable diseases Asthma Lung disease HTN (hypertension) Home Medications ?Medication ?Instructions ?Recorded ?Last Taken ?Type atorvastatin 20 mg tablet 20 mg PO DAILY 09/13/20 Unknown History cholecalciferol (vitamin D3) 50 1 tab PO DAILY 09/13/20 Unknown History mcg (2,000 unit) tablet amlodipine 5 mg tablet 5 mg PO 03/23/22 Unknown History Allergy/AdvReac Type Severity Reaction Status Date / Time codeine Allergy Other Verified 02/25/24 11:18 Family History Mother Myocardial infarction Liver cancer Lymph node cancer Surgical History History of foot surgery History of eye surgery History of nasal surgery h/o right shoulder arthroscopy H/O umbilical hernia repair History of cholecystectomy History of tonsillectomy Social History household members: spouse and children housing: house Smoking Status: Current every day smoker tobacco type: cigarettes alcohol intake: current alcohol intake frequency: a few times a week what type of physical activity do you participate in: walking do you feel safe at home: Yes ROS <LIZA Agrawal - Last Filed: 06/03/24 14:28> ROS ED Constitutional Constitutional ED: Reports fever(s), subjective and sweats Cardiovascular Cardiovascular: Denies chest pain Respiratory/Chest Respiratory/Chest: Denies dyspnea Gastrointestinal Gastrointestinal: Reports abdominal pain and diarrhea; Denies constipation, melena, nausea or vomiting Genitourinary Genitourinary ED: Denies dysuria or hematuria Musculoskeletal Musculoskeletal: Reports back pain Integumentary Denies rash Neurologic Neurologic: Denies weakness EXAM <LIZA Agrawal - Last Filed: 02/25/24 14:28> Physical Exam Const Vital Signs: 02/25/24 11:18 02/25/24 13:18 02/25/24 14:09 Temperature 97.3 F L 98.1 F Temperature Source Temporal Pulse Rate 87 76 76 Respiratory Rate 16 18 18 Blood Pressure 139/90 H 115/76 115/76 Blood Pressure Mean 106 89 89 Pulse Ox 100 98 98 Oxygen Delivery Method Room Air Room Air Positive well nourished, well developed and no apparent distress General Appearance ED: well developed HEENT Reports normocephalic and head/scalp atraumatic Mouth ED: Yes moist mucous membranes normal Eyes PERRL and EOMs intact bilaterally Neck full ROM and supple Chest Wall inspection of chest normal Resp normal respiratory effort and clear to auscultation bilaterally Cardio regular rate and regular rhythm GI soft to palpation, non-distended and no masses GI Narrative: Right lower quadrant tenderness to palpation, no rigidity or guarding, no peritoneal signs. Back/Spine normal ROM and normal to inspection General Back: CVA tenderness bilateral Extremity normal to inspection and full ROM Neuro oriented x3, CN's II-XII intact bilaterally, moves all extremities, no focal motor deficits and no sensory deficits noted Sensorium / Orientation: awake and alert Psych mental status grossly normal and thought process normal Skin no rashes or lesions noted and no wounds <Dr. Ludin Brito DO - Last Filed: 02/25/24 15:09> Physical Exam Const Vital Signs: 02/25/24 11:18 02/25/24 13:18 02/25/24 14:09 Temperature 97.3 F L 98.1 F Temperature Source Temporal Pulse Rate 87 76 76 Respiratory Rate 16 18 18 Blood Pressure 139/90 H 115/76 115/76 Blood Pressure Mean 106 89 89 Pulse Ox 100 98 98 Oxygen Delivery Method Room Air Room Air MDM <LIZA Agrawal - Last Filed: 02/25/24 14:28> MDM MDM Narrative Medical decision making narrative: Patient presenting with diarrhea and right lower quadrant abdominal pain that started on Sunday. He is nontoxic-appearing and in no acute distress. He does have tenderness to his right lower quadrant. Labs will be obtained to rule out leukocytosis, anemia, electrolyte abnormality, DAINA, hepatobiliary etiology, pancreatitis, and UTI. CT scan of the abdomen and pelvis will be obtained to rule out diverticulitis, appendicitis, and other etiology. He will be given IV fluids and Toradol. CBC is unremarkable, CMP shows potassium of 3.2, potassium replacement was given, AST 56, lipase 108. UA negative for UTI. CT scan shows pancolitis. This is likely viral. Supportive care measures were discussed, on reexamination he reports improvement of his symptoms. He is to follow-up with his PCP and will be discharged home in stable condition. Lab Data Attestation: I reviewed the patient's lab results. Labs: Laboratory Results - last 24 hr 02/25/24 02/25/24 12:00 13:35 WBC 6.1 RBC 5.28 Hgb 15.0 Hct 44.5 MCV 84.3 MCH 28.4 MCHC 33.7 RDW Std Deviation 41.2 RDW Coeff of Ramy 13.3 Plt Count 201 MPV 11.2 Immature Gran % (Auto) 0.500 Neut % (Auto) 60.3 Lymph % (Auto) 24.8 Craig % (Auto) 11.6 H Eos % (Auto) 2.1 Baso % (Auto) 0.7 Absolute Neuts (auto) 3.7 Absolute Lymphs (auto) 1.52 Nucleated RBC % 0 Sodium 136 Potassium 3.2 L Chloride 105 Carbon Dioxide 24.0 Anion Gap 7 BUN 13 Creatinine 0.92 Estim Creat Clear Calc 110.48 Est GFR (MDRD) Af Amer 111 Est GFR (MDRD) Non-Af 92 BUN/Creatinine Ratio 14.2 Glucose 123 H Calcium 9.0 Total Bilirubin 0.80 AST 56 H ALT 55 Alkaline Phosphatase 101 Total Protein 6.8 Albumin 3.3 Globulin 3.5 Albumin/Globulin Ratio 0.9 Lipase 108 H Urine Color Yellow Urine Clarity Clear Urine pH 6.5 Ur Specific Tilden 1.010 Urine Protein 30 H Urine Glucose (UA) Normal Urine Ketones Negative Urine Occult Blood 10 H Urine Nitrite Negative Urine Bilirubin Negative Urine Urobilinogen Normal Ur Leukocyte Esterase 25 H Urine RBC 0 SEEN Urine WBC 0-5 SEEN Ur Squamous Epith Cells 0 SEEN Urine Bacteria 0 SEEN Urine Mucus 0 SEEN Radiography Diagnostic Testing: Clinical Impression(s) from Imaging Studies Abdomen/Pelvis CT 02/25/24 11:44 IMPRESSION: Treadwell colitis. Status post cholecystectomy. Mild degree of central intrahepatic biliary ductal dilatation. Electronically Signed: Jacinto Hutchinson MD at 13:18 EDT , <Dr. Ludin Brito, DO - Last Filed: 02/25/24 15:09> [facility] Narrative Medical decision making narrative: Patient presenting with diarrhea and right lower quadrant abdominal pain that started on Sunday. He is nontoxic-appearing and in no acute distress. He does have tenderness to his right lower quadrant. Labs will be obtained to rule out leukocytosis, anemia, electrolyte abnormality, DAINA, hepatobiliary etiology, pancreatitis, and UTI. CT scan of the abdomen and pelvis will be obtained to rule out diverticulitis, appendicitis, and other etiology. He will be given IV fluids and Toradol. CBC is unremarkable, CMP shows potassium of 3.2, potassium replacement was given, AST 56, lipase 108. UA negative for UTI. CT scan shows pancolitis. This is likely viral. Supportive care measures were discussed, on reexamination he reports improvement of his symptoms. He is to follow-up with his PCP and will be discharged home in stable condition. This patient was seen with a PA/PURCHASING ANALYST Individually assessed they patient including history and physical. I have reviewed everything on the chart that is available and agree with the documentation provided by the PA/PURCHASING ANALYST including discussion about the assessment, treatment plan, discussion, and return precautions. Patient presented with diarrhea. He states he and his both came down with something viral days ago had cough and congestion and he had diarrhea. He had a fever on Levi. He said a lot of diarrhea over the last couple of days but is able to drink no black or bloody stool is. He does not have significant abdominal pain and has been cramping. Differential as above. CBC and CMP ultimately normal except for slight low potassium at 3.2. Lipase mildly elevated at 108 but not consistent with pancreatitis. Urinalysis negative for infection. Patient feeling better on reevaluation after being medicated. I feel he stable for discharge home. Return precautions. Lab Data Labs: Laboratory Results - last 24 hr 02/25/24 02/25/24 12:00 13:35 WBC 6.1 RBC 5.28 Hgb 15.0 Hct 44.5 MCV 84.3 MCH 28.4 MCHC 33.7 RDW Std Deviation 41.2 RDW Coeff of Ramy 13.3 Plt Count 201 MPV 11.2 Immature Gran % (Auto) 0.500 Neut % (Auto) 60.3 Lymph % (Auto) 24.8 Craig % (Auto) 11.6 H Eos % (Auto) 2.1 Baso % (Auto) 0.7 Absolute Neuts (auto) 3.7 Absolute Lymphs (auto) 1.52 Nucleated RBC % 0 Sodium 136 Potassium 3.2 L Chloride 105 Carbon Dioxide 24.0 Anion Gap 7 BUN 13 Creatinine 0.92 Estim Creat Clear Calc 110.48 Est GFR (MDRD) Af Amer 111 Est GFR (MDRD) Non-Af 92 BUN/Creatinine Ratio 14.2 Glucose 123 H Calcium 9.0 Total Bilirubin 0.80 AST 56 H ALT 55 Alkaline Phosphatase 101 Total Protein 6.8 Albumin 3.3 Globulin 3.5 Albumin/Globulin Ratio 0.9 Lipase 108 H Urine Color Yellow Urine Clarity Clear Urine pH 6.5 Ur Specific Tilden 1.010 Urine Protein 30 H Urine Glucose (UA) Normal Urine Ketones Negative Urine Occult Blood 10 H Urine Nitrite Negative Urine Bilirubin Negative Urine Urobilinogen Normal Ur Leukocyte Esterase 25 H Urine RBC 0 SEEN Urine WBC 0-5 SEEN Ur Squamous Epith Cells 0 SEEN Urine Bacteria 0 SEEN Urine Mucus 0 SEEN Radiography Diagnostic Testing: Clinical Impression(s) from Imaging Studies Abdomen/Pelvis CT 02/25/24 11:44 IMPRESSION: Treadwell colitis. Status post cholecystectomy. Mild degree of central intrahepatic biliary ductal dilatation. Electronically Signed: Jacinto Hutchinson MD at 13:18 EDT , Discharge Plan Triage Chief Complaint: Abd Pain ED Midlevel Provider: Yarelis Barrow ED Provider: Ludin Brito Dx/Rx/DC Orders Clinical Impression: Abdominal pain, Diarrhea Instructions: ED Diarrhea, Unknown Cause Prescriptions: No Action atorvastatin 20 mg tablet 20 mg PO DAILY cholecalciferol (vitamin D3) 50 mcg (2,000 unit) tablet 1 tab PO DAILY amlodipine 5 mg tablet 5 mg PO Stand Alone Forms: ED Work / School Excuse [facility]errals[place] [Primary Care Provider] - 3-5 Days if not improving Activity Restrictions/Additional Instructions: Stay well-hydrated, you can take [id number] Imodium for your symptoms as needed. Return for any worsening of your symptoms. Print Language: Estonian Disposition Disposition: Home, Self Care Discharge Date/Time: 02/25/24 14:22
[2024-02-25] MEDS: Ketorolac 15 MG/ML Vial IV (11:54)
[2024-02-25] MEDS: 0.9% Normal Saline (1000mL) 1,000 ML 999 ML IV (11:54)
[2024-02-25 12:15] LABS: Absolute Lymphocyte Count 1.52 X10^3/uL (0.83-4.51); Absolute Neutrophil Count 3.7 X10^3/uL (2.0-7.7); Basophil# 0.04 X10^3/uL; Basophil% 0.7 % (0-1); Eosinophil# 0.13 X10^3/uL; Eosinophils% 2.1 % (0-5); Hematocrit 44.5 % (40-54); Lymphocyte # 1.52 X10^3/ul (0.83-4.51); Lymphocyte % 24.8 % (19-41); Mean Corp Hgb Conc 33.7 g/dL (32-36); Mean Corpuscular Hgb 28.4 pg (27.0-32.0); Mean Corpuscular Volume 84.3 fL (80-94); Mean Platelet Vol. 11.2 fl (6.2-12.0); Monocyte# 0.71 X10^3/uL; Monocyte% 11.6 % (0-10); NRBC Flagged by Analyzer 0 % (0-5); Neutrophil # 3.71 X10^3/uL (2.7-7.7); Neutrophil % 60.3 % (47-70); Platelet Count 201 K/mm3 (150-450); RBC Distribution Width CV 13.3 % (11.6-14.6); RBC Distribution Width SD 41.2 fl (35.1-43.9); Red Blood Count 5.28 M/mm3 (4.6-6.2); White Blood Count 6.1 K/mm3 (4.4-11.0)
[2024-02-25 12:27] LABS: ALB/GLOB Ratio 0.9 RATIO (0.9-2.4); AST(SGOT) 56 U/L (15-37); Alanine Aminotransfer ALT/SGPT 55 U/L (16-61); Albumin, Serum 3.3 g/dL (3.2-5.0); Alkaline Phosphatase 101 U/L (45-117); Anion Gap 7 (5-15); BUN 13 mg/dL (7-18); BUN/Creat Ratio 14.2 RATIO (10-20); Chloride 105 mmol/L (98-107); Creatinine, Serum 0.92 mg/dL (0.70-1.30); EST Glomerular Filtration Rate 92 mL/min (>60); Est Glom Filt Rate - Afr Amer 111 mL/min (>60); Estimated Creatinine Clearance 110.48 ml/min; Globulin 3.5 g/dL (2.2-4.2); Glucose 123 mg/dL (74-106); Lipase 108 U/L (13-75); Potassium 3.2 mmol/L (3.5-5.1); Protein, Total 6.8 g/dL (6.4-8.2); Sodium Level 136 mmol/L (136-145)
[2024-02-25 13:18] VITALS: BP 115/76; PULSE 76; RESP 18; O2SAT 98
[2024-02-25 13:40] LABS: Bacteria 0 SEEN /hpf (None Seen); Mucous, Urine 0 SEEN /hpf (<or=2+); Red Blood Cells-Urine 0 SEEN /hpf (0-5); Squamous Epithelial Cells - UA 0 SEEN /hpf (0-5)
[2024-02-25 13:49] LABS: Color, Urine Yellow (Yellow); Glucose, Dipstick Normal (Normal); Ketone-Dipstick Negative (Negative); Leukocyte Esterase-Dipstick 25 /ul (Negative); Nitrite-Dipstick Negative (Negative); Occult Blood-Urine 10 /ul (Negative); Protein-Dipstick 30 mg/dl (Negative); Urine Bilirubin Dipstick Negative (Negative); Urine Clarity Clear (Clear); Urine Urobilinogen Normal (Normal); Urine pH 6.5 (5.0 - 8.0)
[2024-02-25 13:58] LABS: White Blood Cells 0-5 SEEN /hpf (0-5)
[2024-02-25] MEDS: Potassium Chloride Oral Tablet 20 MEQ 40 MEQ PO (14:01)
[2024-02-25 14:09] VITALS: BP 115/76; PULSE 76; RESP 18; TEMP 36.7; O2SAT 98
== END 2024-02-25 14:22 | disposition home or self-care (01) ==
PROVIDERS: Physician Assistant; Emergency Provider Student in an Organized Health Care Education/Training Program; Visit Provider Student in an Organized Health Care Education/Training Program
DX: K52.9 Noninfective gastroenteritis and colitis, unspecified (principal); R10.31 Right lower quadrant pain; E87.6 Hypokalemia; I10 Essential (primary) hypertension; E78.5 Hyperlipidemia, unspecified; J45.909 Unspecified asthma, uncomplicated; F17.210 Nicotine dependence, cigarettes, uncomplicated
CPT/HCPCS: 74177; 80053; 81001; 83690; 85025; 96361; 96374; 99283; J7030; Q9967; A4216

== ENCOUNTER 2024-07-08 06:22 | Day surgery (SDC) | payer OTHER, SELFPAY ==
[2024-07-08] VITALS (8 sets, daily range): BP systolic 105–127; BP diastolic 74–87; PULSE 65–78; RESP 16–18; TEMP 36.4–36.8; O2SAT 92–99; BMI 32.4
--- NOTE | 2024-07-08 07:12 | PRE.ANES_ITS ---
ASA Classification* ASA Classification ASA Classification: 2 Assessment & Plan Anesthesia* Anesthesia Assessment Anesthesia Assessment: Discussed sedation and/or anesthesia options, risks, benefits, and alternatives with patient/parents/legal guardian/POA. Questions invited. The patient/parents/legal guardian/POA seems to understand and agrees to proceed with anesthesia plan. Reviewed the physical assessment, medical history, allergy history and patient home medications list prior to surgery/procedure/anesthetic and documented any changes. Performed airway and anesthesia risk assessments. Anesthesia Type Anesthesia Type: MAC (see written pre anesthesia record for full assessment) Anesthesia Focused Assessment* Temperature: 98.0 F Pulse Rate: 68 Blood Pressure: 117/80 Respiratory Rate: 16 Pulse Ox: 97 Airway Assessment Mouth opens: >3 cm Mallampati Score: II Focused Labs Anesthesia Preop lab: CBC WBC 6.1 K/mm3 (4.4-11.0) 02/25/24 12:00 RBC 5.28 M/mm3 (4.6-6.2) 02/25/24 12:00 Hgb 15.0 g/dL (13.0-16.5) 02/25/24 12:00 Hct 44.5 % (40-54) 02/25/24 12:00 Plt Count 201 K/mm3 (150-450) 02/25/24 12:00 CHEMISTRY Potassium 3.2 mmol/L (3.5-5.1) L 02/25/24 12:00 Sodium 136 mmol/L (136-145) 02/25/24 12:00 BUN 13 mg/dL (7-18) 02/25/24 12:00 Creatinine 0.92 mg/dL (0.70-1.30) 02/25/24 12:00 Glucose 123 mg/dL (74-106) H 02/25/24 12:00 COAG Pre-Assessment Diagnosis/Proposed Procedure Planned Operative Procedure(s): COLONOSCOPY Anesthesia History Anesthesia History - registered nurse midwife: Anesthesia History - registered nurse midwife Hx Hospitalization No 07/03/24 14:17 Any Problems With Anesthesia No 07/03/24 14:17 Cholinesterase deficiency No 07/03/24 14:17 You/Your Family Experience No 07/03/24 14:17 fever (hyperthermia) with Relationship Recent Exposure to Contagious No 11/09/20 08:55 Disease Does patient have nerve No 07/03/24 14:17 stimulator Patient instructed to have device shut off --Does patient have Pacemaker No 07/08/24 06:51 or ICD? When Was Last Pacemaker Check QUESTION #4 FULL TEXT: You/Your Family Experience fever (hyperthermia) with Anesthesia Last Oral Intake Last Oral intake: Last Oral Intake NPO since 00:00 07/08/24 06:51 Meds taken in AM with sips of No 07/08/24 06:51 water? Meds patient instructed to take am of surgery PONV PONV - registered nurse midwife: PONV - registered nurse midwife Female No 07/03/24 14:17 HX of Motion Sickness No 07/03/24 14:17 HX of N/V After Surgery No 07/03/24 14:17 Non-Smoker Yes 07/03/24 14:17 Duration of Surgery greater No 07/03/24 14:17 than 60 minutes Number of Risk Factors 1 07/03/24 14:17 PONV Score Low Risk 07/03/24 14:17 Height & Weight Height & Weight: Anesthesia: Height & Weight Height 5 ft 10 in 07/08/24 06:51 Weight: 102.6 kg 07/08/24 06:51 Body Mass Index (BMI) 32.4 07/08/24 06:51 Respiratory Assessment Respiratory Assessment - registered nurse midwife: Respiratory Tract Infection Hx - registered nurse midwife Hx Respiratory Tract Infection No 07/03/24 14:17 STOP Sleep Apnea STOP Sleep Apnea - registered nurse midwife: STOP Sleep Apnea - registered nurse midwife Hx Hypertension Yes: CONTROLLED WITH MEDS 07/03/24 14:17 Hx Sleep Apnea Yes 07/03/24 14:17 CPAP Yes 07/03/24 14:17 BIPAP No 07/03/24 14:17 Do you snore loudly (louder than talking or can be heard Do you often feel tired/ fatigued/ sleepy during daytime? Has anyone observed you stop breathing during sleep? STOP Results Positive 07/03/24 14:17 QUESTION #5 FULL TEXT : Do you snore loudly (louder than talking or can be heard through closed doors)? Tobacco Use History Tobacco Use History - registered nurse midwife: Tobacco Use History - registered nurse midwife Tobacco Use Cigarettes 11/02/20 15:03 Smoking Status Current every day smoker 07/03/24 14:17 Hx Tobacco Use Yes 07/03/24 14:17 Years Smoking Packs Smoked per Day Smoking Cessation Date was within the last 15 years Hx Smoking Cessation Date Hx Smoking Cessation Counseling Hematologic Medial History Hematologic Hx - registered nurse midwife: Hematologic Medical Hx - vessel slagman Hx of Blood Transfusion No 07/03/24 14:17 Hx of Transfusion in last 3 No 07/03/24 14:17 Months Date of Last Transfusion (if within last 3 months) Ever experience any problems No 07/03/24 14:17 with transfusion(s)? Specify any problems Hx of Preganancy in last 3 N/A 07/03/24 14:17 Months Nurse Filling Out Transfusion [id number] 07/03/24 14:17 & Questions: Date: 07/03/24 07/03/24 14:17 Time: 14:22 07/03/24 14:17 Patient unable to answer at this time (ie. confused, unrespo /Reproduction History /Reproductive History - registered nurse midwife: /Reproductive Hx- registered nurse midwife Hx Now Gestational Age (in weeks): EDC: Hx Hx Para Hx Section SAB PFSH Medical History Wears glasses PTSD (post-traumatic stress disorder) Pulmonary nodule Bulging disc Degenerative disk disease Contact with and (suspected) exposure to other viral communicable diseases Asthma Lung disease HTN (hypertension) Home Medications ?Medication ?Instructions ?Recorded ?Last Taken ?Type atorvastatin 20 mg tablet 20 mg PO DAILY 09/13/20 07/07/24 History metformin 500 mg tablet,extended 500 mg PO QDAY 06/19/24 07/07/24 History release 24 hr amlodipine 10 mg tablet 10 mg PO DAILY 07/03/24 07/07/24 History Allergy/AdvReac Type Severity Reaction Status Date / Time codeine Allergy Other Verified 07/03/24 14:16 Family History Mother Myocardial infarction Liver cancer Lymph node cancer Lung cancer Surgical History History of foot surgery History of eye surgery History of nasal surgery h/o right shoulder arthroscopy H/O umbilical hernia repair History of cholecystectomy History of tonsillectomy Social History household members: spouse and children housing: house Smoking Status: Current every day smoker tobacco type: cigarettes alcohol intake: current alcohol intake frequency: a few times a week what type of physical activity do you participate in: walking do you feel safe at home: Yes Review of Systems (Anesthesia) ROS Narrative System reviewed and no additional complaints, except as documented.
[2024-07-08 07:24] LABS: Bedside Glucose 114 mg/dL (74-106)
--- NOTE | 2024-07-08 07:30 | COLBX_PTH ---
PATIENT: PINEDA LUIS LOC: EN U#:[id number] AGE/SX: 53/M ROOM: RE07/08/[address]: Dr. Max Cohen MD : 1970 BED: DIS: 07/08/2024 SPEC #: [id number] RECD: 07/08/24 10:11 STATUS: JIMBO MARCY #: [id number] VIDAL: 07/08/24 07:[address]: Max Cohen DEPT: SURGICAL PATHOLOGY RECD BY: Adan Campoverde ENTERED: 07/08/24 11:23 SP TYPE: COLON BX OT DR: [facility] Tissues: A - COLON BIOPSY B - POLYP Procedures: Surgery Specimen Level IV HEADER OPERATION: Colonoscopy with biopsy PRE-OP DIAGNOSIS: Colon cancer screening TISSUE SUBMITTED: A- Random colon, B- Rectum polyp biopsy MICROSCOPIC DIAGNOSIS A. Colon, random biopsy: No pathologic change. B. Rectal polyp, biopsy: Hyperplastic polyp. AM.mr 07/09/2024 MICROSCOPIC DESCRIPTION Slides are reviewed. GROSS DESCRIPTION A. Received in fixative is one container labeled with the patient's name and designated Random colon biopsy. The specimen consists of multiple irregular fragments of light valenzuela soft tissue that in aggregate measure 1.5 x 0.5 x 0.1 cm. The specimen is totally submitted in one cassette. B. Received in fixative is one container labeled with the patient's name and designated Rectum polyp biopsy. The specimen consists of one irregular fragment of light valenzuela soft tissue that measures 0.3 x 0.3 x 0.1 cm. The specimen is totally submitted in one cassette. 07/08/2024 TC:5 CPT:56687m6
--- NOTE | 2024-07-08 07:31 | PCM.HP.STD ---
HPI - General General Date of Admission: 07/08/24 Date of Service: 07/08/24 Chief Complaint: diarrhea HPI Narrative PINEDA LUIS, is a 53 M who presents for colonoscopy. H/o alternating diarrhea and constipation [facility] Medical History Wears glasses PTSD (post-traumatic stress disorder) Pulmonary nodule Bulging disc Degenerative disk disease Contact with and (suspected) exposure to other viral communicable diseases Asthma Lung disease HTN (hypertension) Home Medications ?Medication ?Instructions ?Recorded ?Last Taken ?Type atorvastatin 20 mg tablet 20 mg PO DAILY 09/13/20 07/07/24 History metformin 500 mg tablet,extended 500 mg PO QDAY 06/19/24 07/07/24 History release 24 hr amlodipine 10 mg tablet 10 mg PO DAILY 07/03/24 07/07/24 History Allergy/AdvReac Type Severity Reaction Status Date / Time codeine Allergy Other Verified 07/03/24 14:16 Family History Mother Myocardial infarction Liver cancer Lymph node cancer Lung cancer Surgical History History of foot surgery History of eye surgery History of nasal surgery h/o right shoulder arthroscopy H/O umbilical hernia repair History of cholecystectomy History of tonsillectomy Social History household members: spouse and children housing: house Smoking Status: Current every day smoker tobacco type: cigarettes alcohol intake: current alcohol intake frequency: a few times a week what type of physical activity do you participate in: walking do you feel safe at home: Yes ROS Constitutional Constitutional: Reports systems reviewed and no addt'l complaints, except as documented Eyes Eyes: Reports systems reviewed and no addt'l complaints, except as documented ENT HEENT: Reports systems reviewed and no addt'l complaints, except as documented Cardiovascular Cardiovascular: Reports systems reviewed and no addt'l complaints, except as documented Respiratory/Chest Respiratory/Chest: Reports systems reviewed and no addt'l complaints, except as documented Gastrointestinal Gastrointestinal: Reports systems reviewed and no addt'l complaints, except as documented Vital Signs Vital Signs Vital Signs: 07/08/24 06:49 07/08/24 06:51 07/08/24 07:12 Temperature 98.0 F 98.0 F Temperature Source Temporal Pulse Rate 68 68 Respiratory Rate 16 16 Respiratory Pattern Normal Blood Pressure 117/80 117/80 Blood Pressure Mean 92 Blood Pressure Source Monitor Blood Pressure Position Semi-Fowlers Blood Pressure Location Right Arm Pulse Ox 97 97 Oxygen Delivery Method Room Air Weight Weight: 226 lb 3.108 oz Body Mass Index (BMI) 32.4 Physical Exam Const alert, oriented x3 and no apparent distress General Appearance: cooperative HEENT normocephalic Eyes PERRL Neck full ROM Resp Effort and Inspection: symmetric chest movement Results Lab / Micro Data Labs: Laboratory Results - last 24 hr 07/08/24 06:47: POC Glucose 114 H Assessment & Plan Assessment/Plan (1) Colon cancer screening: PLAN: Plan colonoscopy today. Risks and benefits of procedure discussed. Patient wishes to proceed. Charges/Coding Visit Charges Inpatient E&M: 68400 Init Hosp L1
--- NOTE | 2024-07-08 08:24 | OP.CCLET_ITS ---
07/08/2024 [facility] Re : Colonoscopy procedure for [facility] This procedure was performed on Monday, July 08, 2024. My impressions and recommendations are as follows: Impressions : - Preparation of the colon was fair. - Internal hemorrhoids. - One 3 mm polyp in the rectum, removed with a cold biopsy forceps. Resected and retrieved. - The examination was otherwise normal on direct and retroflexion views. Recommendations : - Discharge patient to home (ambulatory). - High fiber diet indefinitely. - Await pathology results. - Repeat colonoscopy in 5-10 years for surveillance based on pathology results. - Return to my office PRN. - Continue present medications. My findings are described in the full procedure note, which is enclosed. If I can be of further assistance, please feel free to contact me at . Sincerely, Max Cohen MD 07/08/2024 8:23:51 AM This report has been signed electronically.
--- NOTE | 2024-07-08 08:24 | OP.COLON_ITS ---
Patient Name: Refugio Mills Procedure Date: 07/08/2024 7:26 AM Date of : 1970 Age: 53 Procedure: Colonoscopy Indications: Screening for colorectal malignant neoplasm Providers: Max Cohen MD Referring MD: Medicines: Propofol per Anesthesia Patient Profile: Refer to note in patient chart for documentation of history and physical. Last Colonoscopy: none. The patient's first colonoscopy is today. Complications: No immediate complications. Estimated blood loss: None. Procedure: Pre-Anesthesia Assessment: - Prior to the procedure, a History and Physical was performed, and patient medications and allergies were reviewed. The patient's tolerance of previous anesthesia was also reviewed. The risks and benefits of the procedure and the sedation options and risks were discussed with the patient. All questions were answered, and informed consent was obtained. Prior Anticoagulants: The patient has taken no anticoagulant or antiplatelet agents. ASA Grade Assessment: II - A patient with mild systemic disease. After reviewing the risks and benefits, the patient was deemed in satisfactory condition to undergo the procedure. After I obtained informed consent, the scope was passed under direct vision. Throughout the procedure, the patient's blood pressure, pulse, and oxygen saturations were monitored continuously. The adult colonoscope was introduced through the anus and advanced to the cecum, identified by the appendiceal orifice, ileocecal valve and palpation. The ileocecal valve, appendiceal orifice, and rectum were photographed. The entire colon was well visualized. The colonoscopy was performed without difficulty. The patient tolerated the procedure well. The quality of the bowel preparation was fair. Moderate Sedation: See the other procedure note for documentation of moderate sedation with intraservice time. Scope In: 7:44:38 AM Scope Withdrawal Time 0 hours 19 minutes 48 seconds Scope Out: 8:13:34 AM Total Procedure Duration Time 0 hours 28 minutes 56 seconds Findings: The perianal and digital rectal examinations were normal. Internal hemorrhoids were found during retroflexion. The hemorrhoids were moderate. A 3 mm polyp was found in the rectum. The polyp was semi-sessile. The polyp was removed with a cold biopsy forceps. Resection and retrieval were complete. Verification of patient identification for the specimen was done by the nurse using the patient's name, date and medical record number. Estimated blood loss was minimal. The exam was otherwise without abnormality on direct and retroflexion views. Multiple random colonic biopsies were performed as patient expressed that he has has intermitent diarrhea for years Impression: - Preparation of the colon was fair. - Internal hemorrhoids. - One 3 mm polyp in the rectum, removed with a cold biopsy forceps. Resected and retrieved. - The examination was otherwise normal on direct and retroflexion views. Recommendation: - Discharge patient to home (ambulatory). - High fiber diet indefinitely. - Await pathology results. - Repeat colonoscopy in 5-10 years for surveillance based on pathology results. - Return to my office PRN. - Continue present medications. Procedure Code(s): --- Professional --- 65801, Colonoscopy, flexible; with biopsy, single or multiple Diagnosis Code(s): --- Professional --- Z12.11, Encounter for screening for malignant neoplasm of colon D12.8, Benign neoplasm of rectum K64.8, Other hemorrhoids CPT copyright 2021 [employer]. All rights reserved. The codes documented in this report are preliminary and upon inventory and pricing associate review may be revised to meet current compliance requirements. Max Cohen MD 07/08/2024 8:23:51 AM This report has been signed electronically. Number of Addenda: 0 Note Initiated On: 07/08/2024 7:26 AM
--- NOTE | 2024-07-08 08:25 | PCM.POST.ANE ---
Anesthesia: Postop Eval I Current Vital Signs Temperature: 98.2 F Pulse Rate: 68 Blood Pressure: 107/74 Respiratory Rate: 16 Pulse Ox: 93 Oxygen Delivery Method: Room Air Assessment Airway patent: Yes Spontaneous unlabored respirations: Yes Mental status: Asleep nausea: No Vomiting: No Anesthesia Complication: No Fluid Hydration Crystalloid volume administer (ml): 60 Total IV fluid infused: 60 Progress Note Anesthesia document: Postop Eval 1 completed: Yes
--- NOTE | 2024-07-08 08:26 | PCM.POSTANE2 ---
Anesthesia Postop Eval I Sum Postop Eval Completion status Anesthesia document: Postop Eval 1 completed: Yes Anesthesia Postop Eval I Summary Anesthesia Postop Eval I Summary: Anesthesia Postop Eval I: Assessment Summary Airway patent Yes 07/08/24 08:26 [email or web address] Spontaneous unlabored Yes 07/08/24 08:26 [email or web address] respirations Mental status Asleep 07/08/24 08:26 [email or web address] nausea No 07/08/24 08:26 [email or web address] Vomiting No 07/08/24 08:26 [email or web address] Anesthesia Postop Eval I: Fluid Summary Crystalloid volume administer 60 07/08/24 08:26 [email or web address] (ml) Colloids volume administered ( ml) Blood Product volume administered (ml) Total IV fluid infused 60 07/08/24 08:26 [email or web address] Anesthesia Postop Eval I: Summary Notes Anesthesia Complication No 07/08/24 08:26 [email or web address] Anesthesia Complication Comment: Post-operative progress note Anesthesia: Postop Eval II Evaluation Mental status: Awake Pain Level: 0 nausea: No Vomiting: No
== END 2024-07-08 08:53 | disposition home or self-care (01) ==
LOC: EN 06:23 → AC 06:26
PROVIDERS: Visit Provider Surgery
PROC: 0DJD8ZZ Inspection of Lower Intestinal Tract, Via Natural or Artificial Opening Endoscopic (ICD-10-PCS; CPT 45378; principal; 2024-07-08 07:25)
DX: Z12.11 Encounter for screening for malignant neoplasm of colon (principal); R19.7 Diarrhea, unspecified; K64.8 Other hemorrhoids; D12.8 Benign neoplasm of rectum; I10 Essential (primary) hypertension; J45.909 Unspecified asthma, uncomplicated; F17.210 Nicotine dependence, cigarettes, uncomplicated; Z79.84 Long term (current) use of oral hypoglycemic drugs; Z79.899 Other long term (current) drug therapy
CPT/HCPCS: 45380; 82962; 88305; A4216; J2405

== ENCOUNTER → 2024-09-22 | Outpatient (CLI) | payer OTHER, SELFPAY ==
--- NOTE | 2024-09-22 16:45 | CT_ITS ---
STUDY: LOW DOSE CT LUNG CANCER SCREENING REASON FOR EXAM: Male, 53 years old. Nicotine dependence, cigarettes, uncomplicated RADIATION DOSAGE (If Supplied By Facility): CTDIvol = ( 4.02 ) mGy, DLP = ( 122.85 ) mGycm TECHNIQUE: No contrast was administered. Low dose technique was utilized (average mAS-38 and kVp 120). 1.25 mm axial source images with a slice interval of 1.25-mm were reconstructed in lung windows. 2.5 mm axial source images with a slice interval of 2.5-mm were reconstructed in lung windows. 5.0 mm axial source images with a slice interval of 5.0-mm were reconstructed in soft tissue windows. COMPARISON: 08/29/2023 Emphysema: Mild emphysema. Linear scar in the lingula. No noncalcified nodule or mass. Endobronchial lesion: None Aorta: No thoracic aortic aneurysm. CORONARY ARTERIES: Coronary artery calcification is seen. Heart: No cardiomegaly. Pulmonary artery: Normal Mediastinal nodes: Normal Other chest and abdominal findings: None CT/Low Dose CT Lung Screening IMPRESSION: Lung-RADS category 1 - Continue annual screening with LDCT in 12 months. IMPORTANT NOTES FOR USE: ACR Lung-RADS Version 1.1 Assessment Categories Release Date: 2018 Category: Coded 0-4 bases on nodule(s) with highest degree of suspicion. Negative screen is defined as categories 1 and 2; a positive screen is defined as categories 3 and 4. Category 3 and 4A nodules that are unchanged on interval CT should be coded as category 2, and individuals returned to screening in 12 months. Category 4X: Category 3 or 4 nodules with additional imaging findings that increase the suspicion of lung cancer, such as spiculation, GGN that doubles in size in 1 year, enlarged lymph notes, etc. Category Modifiers: S (significant finding unrelated to lung cancer) Electronically Signed: Silver Serrano MD at 13:47 EST ,
== END | disposition home or self-care (01) ==
LOC: CT 16:42
PROVIDERS: Referring Provider Nurse Practitioner Adult Health; Visit Provider Nurse Practitioner Adult Health
DX: Z12.2 Encounter for screening for malignant neoplasm of respiratory organs (principal); F17.210 Nicotine dependence, cigarettes, uncomplicated
CPT/HCPCS: 71271

== ENCOUNTER → 2025-04-15 | Outpatient (CLI) | payer OTHER, SELFPAY ==
[2025-04-15 12:45] VITALS: PULSE 87; PULSE 91; PULSE 92; PULSE 95; PULSE 97; PULSE 98; O2SAT 95; O2SAT 96; O2SAT 97; O2SAT 98
--- NOTE | 2025-04-17 11:16 | PCM.PSN.6M ---
PSN 6 Minute Walk Test 6 Minute Walk Test 6 Minute Walk Test: 6 Minute Walk Test PSN:6-Minute Walk Test Start: 04/15/25 13:01 Freq: Status: Active Protocol: [id number] Document 04/15/25 12:45 AEH (Rec: 04/15/25 13:05 AEH [id number]) 6 Minute Walk Test Date Performed 04/15/25 Time Performed 12:45 Height 5 ft 10 in Weight: 223 lb Weight in Pounds 223.[address]: Assistive device None used: Pre-test Oxygen Delivery Room Air Method Pulse Ox (%) 98 Pulse Rate (60-100 87 beats/min) Dyspnea Patricio Scale ( 0 0-10) Exertion Patricio Scale 6 (6-20) 1st minute Oxygen Delivery Room Air Method Pulse Ox (%) 96 Pulse Rate (60-100 98 beats/min) 2nd minute Oxygen Delivery Room Air Method Pulse Ox (%) 97 Pulse Rate (60-100 97 beats/min) 3rd minute Oxygen Delivery Room Air Method Pulse Ox (%) 95 Pulse Rate (60-100 95 beats/min) 4th minute Oxygen Delivery Room Air Method Pulse Ox (%) 96 Pulse Rate (60-100 91 beats/min) 5th minute Oxygen Delivery Room Air Method Pulse Ox (%) 96 Pulse Rate (60-100 95 beats/min) 6th minute Oxygen Delivery Room Air Method Pulse Ox (%) 97 Pulse Rate (60-100 98 beats/min) Dyspnea Patricio Scale ( 0.5 0-10) Exertion Patricio Scale 9 (6-20) Post-test Oxygen Delivery Room Air Method Pulse Ox (%) 95 Pulse Rate (60-100 92 beats/min) Full Laps Walked 16 Partial Lap, Number 26 of Tiles Walked Total Distance 970 Walked (ft) Interpretation Interpretation: The patient ambulated 970 feet over the course of 6 minutes beginning on room air without assistive devices. Pretesting oxygen saturation was noted to be 98% on room air. With ambulation, the radha oxygen saturation was 95%. There was no significant exertional oxygen desaturation. Recommendations Recommendations: There is no indication for the use of supplemental oxygen at this time.
== END | disposition home or self-care (01) ==
LOC: PSN 12:30
PROVIDERS: Referring Provider Internal Medicine Critical Care Medicine; Visit Provider Internal Medicine Critical Care Medicine
DX: J45.909 Unspecified asthma, uncomplicated (principal)
CPT/HCPCS: 94618

== ENCOUNTER → 2025-09-23 | Outpatient (CLI) | payer OTHER, SELFPAY ==
--- NOTE | 2025-09-23 08:19 | CT_ITS ---
PROCEDURE: LOW DOSE CT LUNG SCREENING 09/23/2025 REASON FOR EXAM: TOBACCO DEPENDENCY TECHNIQUE: Procedure Code: [id number] Modality: CT Procedure: LOW DOSE CT LUNG SCREENING Coronal and Sagittal reconstruction series were provided. One or more dose reduction techniques were used (e.g., Automated exposure control, adjustment of the mA and/or kV according to patient size, use of iterative reconstruction technique). REFERENCE LINK: [employer] Lung-RADS COMPARISON: 09/22/2024. FINDINGS: PULMONARY NODULES: (Only nodules >3mm are reported) A 3 mm noncalcified nodule is noted in the right middle lobe (series 2, image 143), unchanged. The remainder of the lungs is clear. The unenhanced heart is normal in size. Mild atherosclerotic calcifications within the coronary arteries. No thoracic lymphadenopathy. Mild lower thoracic spondylosis. No acute osseous abnormality. CT/Low Dose CT Lung Screening IMPRESSION: Lung-RADS Category: 2 BENIGN (BASED ON IMAGING FEATURES OR INDOLENT BEHAVIOR). RECOMMEND 12-MONTH SCREENING LDCT. Other Significant Findings: Mild atherosclerosis. Mild lower thoracic spondylo sis. Reading Location: [id number]
--- OUTSIDE RECORDS SUMMARY | 2025-09-23 08:33 | XMS RPT_ITS | CCD ---
Author Organization [facility] Care Team Providers Care Fill Technician Name Role Phone Unavailable Unavailable Unavailable JUAN LUIS MCDANIELS Unavailable Unavailable JUAN LUIS MCDANIELS Unavailable Unavailable ASHLEE BARTLETT Unavailable Unavailable JUAN LUIS MCDANIELS Unavailable Unavailable JUAN LUIS MCDANIELS Unavailable Unavailable JUAN LUIS MCDANIELS Unavailable Unavailable Unavailable Primary Care Provider Unavailabl e Unavailable Primary [facility] [place] [facility] [place] Referring Provider Unavailable LIZA Orlando Attending Provider Unavailable Primary Care Provider [facility], LUCERO LI Referring [facility], LUCERO LI Referring [place] Primary Care Provider Unavailabl e Dr. Elio Prieto Referring Provider Dr. Elio Prieto Other Provider [phone] Dr. Turner Beltre Attending Provider Unavailable Primary Care Provider Unavailabl e Víctor Liao MD Primary Care Provider [phone] [facility], [place] [facility] [place] Referring Provider Unavailable Dr. Festus Gerardo DO Attending Provider [facility] Primary Care Provider Unavailabl e Dr. Festus Gerardo DO Referring Provider Dr. Festus Gerardo DO Other Provider [phone] Festus Gerardo Consulting [facility] Primary Care Unavailable Festus Gerardo Attending Unavailable Festus Gerardo Referring Unavailable Max Cohen [facility] [place] [facility] [place] [facility] [place] [facility] Unavailable Dayana Cohn Attending Unavailable Dayana Cohn Referring [facility] [place] [facility] Unavailable Festus Gerardo Attending Unavailable Festus Gerardo Referring Unavailable Max Cohen Attending [facility] [place] [facility] [place] [facility] [place] [facility] Unavailable Festus Gerardo Attending [facility] [place] [facility] [place] [facility] [place] Referring Unavailable Max Cohen Consulting Unavailable Max Cohen Attending Unavailable Allergies Allergy Classification Reported Allergen(s) Allergy Type Date of Onset Reaction(s) Facility Opioid Agonists (1 source) Codeine Drug Allergy 5 Other: See Comments [facility] Work Phone: (18 sources) codeine; Translations: [CODEINE] Drug Allergy 5 Other (See Comments), Other: See Comments [facility] Comment on above: HEMATURIA (1 source) Codeine Drug Allergy 5 [facility] Repository Medications Current Medications Medication Drug Class(es) Dates Sig (Normalized) Sig (Original) [id number] 200 actuat albuterol 0.09 mg/actuat metered dose inhaler (9 sources) beta2-Adrenergic Agonist Start: 03-18-2025 Albuterol Sulfate 90 mcg/actuation HFA aerosol inhaler Active INHALATION March 18, 2025 12:00am Start: 11-02-2020 End: 03-23-2022 Albuterol Sulfate 1 PUFF inh aler Discontinued 1 - 2 NMA INHALATION EVERY 6 HOURS NEEDED as needed for Sob &/Or Wheezing November 02, 2020 1:00am March 23, 2022 10:59am Start: 11-02-2020 End: 03-23-2022 take 1 puff(s) by inhalation every six hours as needed Albuterol Sulfate Discontinued 1 - 2 PUFF INHALATION EVERY 6 HOURS NEEDED November 02, 2020 12:00am March 23, 2022 9:59am amLODIPine 10 mg oral tablet (14 sources) Dihydropyridine Calcium Channel Brenda Start: 07-03-2024 take 1 tablet by mouth once daily Amlodipine 10 mg tablet Active 10 mg PO DAILY July 03, 2024 12:00am Start: 12-07-2021 End: 07-03-2024 Amlodipine 5 mg tablet Disco ntinued 5 mg PO March 23, 2022 12:00am July 03, 2024 2:17pm atorvastatin 40 mg oral tablet (14 sources) HMG-CoA Reductase Inhibitor Start: 03-18-2025 take 1 tablet by mouth once daily Atorvastatin 40 mg tablet Active 40 mg PO daily March 18, 2025 12:00am Start: 09-13-2020 End: 03-18-2025 take 1 tablet by mouth once daily Atorvastatin 20 mg tablet Discontinued 20 mg PO DAILY September 13, 2020 1:00am March 18, 2025 11:07am baclofen 10 mg oral tablet (2 sources) gamma-Aminobutyric Acid-ergic Agonist Start: 03-18-2025 Baclofen 10 mg tablet Active mg PO March 18, 2025 12:00am benzonatate 100 mg oral capsule (7 sources) Non-narcotic Antitussive Start: 01-31-2022 benzo natate (TESSALON PERLE) 100 mg capsule Take 1-2 capsules tid prn, no more than 6 in 24 hours. 30 capsule 0 01/31/2022 Active Start: 12-31-2018 End: 01-31-2022 take 1 capsule by mouth every eight hours as needed Benzonatate 200 mg capsule Take 1 capsule by mouth three times daily as needed. 30 capsule 0 12/31/2018 01/31/2022 Discontinued Comment on above: Take 1 capsule by mo [facility] three times daily as needed. Take 1-2 capsules ti d prn, no more than 6 in 24 hours. Budesonide-Formoterol (2 sources) Corticosteroid, beta2-Adrenergic Agonist Start: 03-18-2025 Budesonide-Formoterol (Breyna) 160-4.5 mcg/actuation HFA aerosol inhaler Active 2 NMA INHALATION TWICE A DAY 10.2 6 March 18, 2025 12:00am Start: 03-18-2025 Budesonide-For moterol (Breyna) 160-4.5 mcg/actuation HFA aerosol inhaler Active 2 NMA INHALATION TWICE A DAY 10.2 March 18, 2025 12:00am colestipol hydrochloride 1000 mg oral tablet (2 sources) Bile Acid Sequestrant Start: 03-18-2025 Colestipol 1 gram tablet Active 1 g PO TWICE A DAY March 18, 2025 12:00am ibuprofen 800 mg oral tablet (2 sources) Nonsteroidal Anti-inflammatory Drug Start: 03-18-2025 take 1 tablet by mouth three times daily Ibuprofen 800 mg tablet Active 800 mg PO THREE TIMES A DAY March 18, 2025 12:00am 24 hr metFORMIN hydrochloride 500 mg extended release oral tablet (2 sources) Biguanide Start: 06-19-2024 take 1 tablet by mouth once daily Metformin 500 mg tablet extended release 24 hr Active 500 mg PO daily June 19, 2024 12:00am predniSONE 20 mg oral tablet (1 source) Start: 01-31-2022 End: 02-05-2022 take 2 tablets by mouth once daily predniSONE (DELTASONE) 20 mg tablet Take 2 tablets by mouth once daily for 5 days. 10 tablet 0 01/31/2022 02/05/2022 Active Comment on above: Take 2 tablets by mo ut once daily for 5 days. tiZANidine 2 mg oral tablet (2 sources) Central alpha-2 Adrenergic Agonist tiZANidine (ZANAFLEX) 2 MG tablet Take by mouth 3 (three) times a day. 0 Active Completed/Discontinued Medications Medication Drug Class(es) Dates Sig (Normalized) Sig (Original) acetaminophen 500 mg oral tablet (7 sources) Start: 11-09-2020 End: 03-23-2022 take 2 tablets by mouth every six hours as needed Acetaminophen 500 MG tablet Discontinued 1000 mg PO EVERY 6 HOURS NEEDED 50 0 November 09, 2020 1:00am March 23, 2022 10:59am Start: 11-09-2020 End: 03-23-2022 take 1000 mg by mouth every six hours as needed Acetaminophen Discontinued 1000 MG PO EVERY 6 HOURS NEEDED 50 November 09, 2020 12:00am March 23, 2022 9:59am brompheniramine maleate 0.4 mg/ml / dextromethorphan hydrobromide 2 mg/ml / pseudoephedrine hydrochloride 6 mg/ml oral solution (2 sources) alpha-Adrenergic Agonist, Uncompetitive C-hsofbq-W-aspartate Receptor Antagonist, Sigma-1 Agonist Start: 02-06-2019 End: 01-31-2022 take 10 mL by mouth every six hours as needed Vkdclyejwlwjjbs-Tmnjidulp-JS (BROMFED DM) 2-30-10 mg/5 mL syrup Take 10 mL by mouth four times daily as needed. 200 mL 0 02/06/2019 01/31/2022 Discontinued (Course of therapy completed) Comment on above: Take 10 mL by mouth four times daily as needed. buPROPion hydrochloride 75 mg oral tablet (7 sources) Aminoketone Start: 03-21-2016 End: 09-13-2020 take 1 tablet by mouth twice daily Bupropion Hcl 75 MG tablet Discontinued 75 mg PO TWICE A DAY March 21, 2016 12:00am September 13, 2020 10:14am cholecalciferol 0.05 mg oral tablet (12 sources) Vitamin D Start: 09-13-2020 End: 07-03-2024 Cholecalciferol (Vitamin D3) 50 mcg (2,000 unit) tablet Discontinued 1 {tbl} PO DAILY September 13, 2020 1:00am July 03, 2024 2:16pm lisinopril 5 mg oral tablet (7 sources) Angiotensin Converting Enzyme Inhibitor Start: 11-02-2020 End: 03-23-2022 take 1 tablet by mouth once daily Lisinopril 5 MG tablet Discontinued 5 mg PO DAILY November 02, 2020 1:00am March 23, 2022 10:59am loratadine 10 mg oral tablet (13 sources) Start: 09-27-2020 End: 03-23-2022 take 1 tablet by mouth once daily Loratadine (Claritin) 10 mg tablet Discontinued 10 mg PO DAILY September 27, 2020 1:00am March 23, 2022 10:59am Comment on above: Take 10 mg by mouth once daily. Tiotropium-Olodat al (2 sources) Anticholinergic, beta2-Adrenergic Agonist Start: 03-18-2025 End: 03-18-2025 Tiotropium-Olodaterol (Stiolto Respimat) 2.5-2.5 mcg/actuation mist Discontinued 2 NMA INHALATION daily March 18, 2025 12:00am March 18, 2025 11:34am oxyCODONE hydrochloride 5 mg oral tablet (7 sources) Opioid Agonist Start: 11-09-2020 End: 03-23-2022 take 1-2 tablets by mouth every four hours as needed for pain Oxycodone 5 MG tablet Discontinued 5 mg PO EVERY 4 HOURS NEEDED as needed for Pain Score 6-10 45 0 November 09, 2020 March 23, 2022 10:59am Other acute postprocedural pain 1-2 tabs by mouth every 4 hrs as needed for pain Problems Active Problems Problem Classification Problem Date Documented Da te Episodic/Chronic Abdominal pain (3 sources) Abdominal pain; Translations: [Unspecified abdominal pain] 02-25-2024 Episodic Alcohol-related disorders (7 sources) Alcohol abuse; Translations: [Alcohol abuse, uncomplicated] 07-27-2015 Chronic Anxiety disorders (6 sources) Posttraumatic stress disorder; Translations: [Post-traumatic stress disorder, unspecified] Onset: 05-07-2015 05-07-2015 Chronic Asthma (11 sources) Asthma; Translations: [Unspecified asthma, uncomplicated] Onset: 05-13-2025 03-23-2022 Chronic Chronic obstructive pulmonary disease and bronchiectasis (6 sources) Acute exacerbation of chronic obstructive airways disease with asthma; Translations: [Chronic obstructive pulmonary disease with (acute) exacerbation] Onset: 10-02-2016 10-02-2016 Chronic Chronic obstructive pulmonary disease and bronchiectasis (4 sources) Bronchitis; Translations: [Bronchitis, not specified as acute or chronic] Onset: 08-29-2022 Episodic Essential hypertension (6 sources) Hypertensive disorder; Translations: [Essential (primary) hypertension] Onset: 05-07-2015 05-07-2015 Chronic Immunizations and screening for infectious disease (14 sources) Mantoux: positive; Translations: [Nonspecific reaction to tuberculin skin test without active tuberculosis] Onset: 05-07-2015 05-07-2015 Episodic Other circulatory disease (1 source) Pulmonary congestion ; Translations: [Other specified symptoms and signs involving the circulatory and respiratory systems] Episodic Other gastrointestinal disorders (2 sources) Diarrhea; Translations: [Diarrhea, unspecified] 03-04-2024 Episodic Other lower respiratory disease (1 source) Cough; Translations: [Cough] Episodic Other lower respiratory disease (1 source) Wheezing; Translations: [Wheezing] Episodic Other lower respiratory disease (7 sources) Disorder of lung; Translations: [Other disorders of lung] 03-23-2022 Episodic Other lower respiratory disease (1 source) Dyspnea; Translations: [Shortness of breath] 06-18-2024 Episodic Other male genital disorders (1 source) Azoospermia Episodic Other male genital disorders (4 sources) Other male infertility; 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] Onset: 07-03-2018 Episodic Other male genital disorders (2 sources) Organic azoospermia; 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] Onset: 07-03-2018 Episodic Other nutritional; endocrine; and metabolic disorders (4 sources) Obesity; Translations: [Obesity, unspecified] 03-18-2025 Chronic Other upper respiratory disease (6 sources) Seasonal allergy; Translations: [Other seasonal allergic rhinitis] Onset: 05-07-2015 05-07-2015 Chronic Residual codes; unclassified (10 sources) Obstructive sleep apnea syndrome; Translations: [Obstructive sleep apnea (adult) (pediatric)] Onset: 05-07-2015 09-19-2021 Chronic Residual codes; unclassified (7 sources) History of operative procedure on foot; Translations: [Other specified postprocedural states] 03-23-2022 Episodic Residual codes; unclassified (4 sources) History of eye AND/OR adnexa surgery; Translations: [Other specified postprocedural states] 03-23-2022 Episodic Substance-related disorders (18 sources) Smoker; Translations: [Nicotine dependence, unspecified, uncomplicated] Onset: 05-07-2015 09-19-2021 Chronic Unclassified (1 source) Unknown / UNK(Unknown) Onset: 07-23-2018 Past or Other Problems Problem Classification Problem Date Documented Date Episodic/Chronic Biliary tract disease (6 sources) Chronic cholecystitis without calculus; Translations: [Chronic cholecystitis] Onset: 07-21-2015 07-21-2015 Episodic Conditions associated with dizziness or vertigo (6 sources) Vertigo; Translations: [Dizziness and giddiness] Onset: 05-07-2015 05-07-2015 Episodic Neoplasms of unspecified nature or uncertain behavior (6 sources) Neoplasm of uncertain behavior of skin of neck; Translations: [Neoplasm of uncertain behavior of skin] Onset: 05-07-2015 05-07-2015 Episodic Other ear and sense organ disorders (6 sources) Tinnitus; Translations: [Tinnitus, unspecified ear] Onset: 05-07-2015 05-07-2015 Episodic Other screening for suspected conditions (not mental disorders or infectious disease) (5 sources) Patient encounter status; Translations: [Encounter for screening for malignant neoplasm of colon] Onset: 08-06-2024 06-19-2024 Episodic Other skin disorders (6 sources) Vesicular eczema; Translations: [Dyshidrosis [pompholyx]] Onset: 05-07-2015 05-07-2015 Episodic Other upper respiratory disease (6 sources) Nasal deviation, bone; Translations: [Deviated nasal septum] Onset: 05-07-2015 05-07-2015 Episodic Unclassified (1 source) 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 Unclassified (1 source) OBSTRUCTIVE 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 Onset: 07-23-2018 Unclassified (7 sources) h/o right shoulder arthroscopy 04-13-2022 Results Test Name Value Interpretation Reference Range Facility 6 Minute Walk Teston 025 6 Minute Walk Test [facility]Neurology [address] [place] [address] MR#: [id number] Acct: [id number] Name: PINEDA LUIS Rep #: [id number] : 1970 54 From: Festus Gerardo DO Referring Dr: Festus Gerardo DO Status: REG CLI Location: PSN Date: Sex: M C PSN 6 Minute Walk Test 6 Minute Walk Test 6 Minute Walk Test: 6 Minute Walk Test PSN:6-Minute Walk Test Start: 04/15/25 13:01 Freq: Status: Active Protocol: [id number] Document 04/15/25 12:45 AEH (Rec: 04/15/25 13:05 AEH [id number]) 6 Minute Walk Test Date Performed 04/15/25 Time Performed 12:45 Height 5 ft 10 in Weight: 223 lb Weight in Pounds 223.[address]: Assistive device None used: Pre-test Oxygen Delivery Room Air Method Pulse Ox (%) 98 Pulse Rate (60-100 87 beats/min) Dyspnea Patricio Scale ( 0 0-10) Exertion Patricio Scale 6 (6-20) 1st minute Oxygen Delivery Room Air Method Pulse Ox (%) 96 Pulse Rate (60-100 98 beats/min) 2nd minute Oxygen Delivery Room Air Method Pulse Ox (%) 97 Pulse Rate (60-100 97 beats/min) 3rd minute Oxygen Delivery Room Air Method Pulse Ox (%) 95 Pulse Rate (60-100 95 beats/min) 4th minute Oxygen Delivery Room Air Method Pulse Ox (%) 96 Pulse Rate (60-100 91 beats/min) 5th minute Oxygen Delivery Room Air Method Pulse Ox (%) 96 Pulse Rate (60-100 95 beats/min) 6th minute Oxygen Delivery Room Air Method Pulse Ox (%) 97 Pulse Rate (60-100 98 beats/min) Dyspnea Patricio Scale ( 0.5 0-10) Exertion Patricio Scale 9 (6-20) Post-test Oxygen Delivery Room Air Method Pulse Ox (%) 95 Pulse Rate (60-100 92 beats/min) Full Laps Walked 16 Partial Lap, Number 26 of Tiles Walked Total Distance 970 Walked (ft) Interpretation Interpretation: The patient ambulated 970 feet over the course of 6 minutes beginning on room air without assistive devices. Pretesting oxygen saturation was noted to be 98% on room air. With ambulation, the radha oxygen saturation was 95%. There was no significant exertional oxygen desaturation. Recommendations Recommendations: There is no indication for the use of supplemental oxygen at this time. 04/17/25 1117 Date Festus Gerardo DO CC: Date Dictated: 04/17/25 1116 Date Transcribed: 04/17/25 111 Lobby Attendant: Dr. Festus Gerardo DO Signed Normal [facility] Pulmonary Visit Reporton Pulmonary Visit Report [facility]monary Medicine [address] [place] [address] OFFICE VISIT Date of Service: 03/18/25 MR#: [id number] Acct: [id number] Name: PINEDA LUIS Rep #: [id number] : 1970 Provider: Dr. Festus Gerardo DO Age/Sex: 54/M Location[facility] Status: Signed Assessment and Plan Assessment and Plan (1) Asthma: Status: Chronic Plan: The patient reported that he was previously diagnosed with asthma by a [place] folder machine adjuster 15 years ago. Despite this, the patient has been maintained on Stiolto and as needed albuterol. His most recent pulmonary function studies only demonstrated a moderate restrictive ventilatory impairment with preserved diffusing capacity. CT imaging of the chest only demonstrated mild emphysematous changes along with minimal scarring in the lingula. At this time, we will plan to transition the patient from Stiolto to Breyna and reassess his symptom response to therapy. In addition, we will plan to obtain a 6-minute walk test to assess for any exertional hypoxemia, prior to his next office visit. (2) Nicotine dependence, cigarettes, uncomplicated: Status: Chronic Plan: I personally discussed the deleterious effects of ongoing tobacco use with the patient, including modalities which could utilized to achieve a smoke-free lifestyle. The patient is a candidate to un dergo yearly low-dose CT imaging of the chest, which will next be due in August 2025. (3) FELISHA (obstructive sleep apnea): Status: Chronic Plan: While the patient was previously diagnosed with obstructive sleep apnea, he is no longer compliant with conventional PAP therapy due to chronic sinusitis. (4) Obesity: Status: Chronic Plan: Weight loss through dietary modification and a graded exercise regimen is strongly encouraged. Orders: Orders Simple Pulmonary Exercise Test 03/18/25 J45.909 - Unspecified asthma, uncomplicated Low Dose CT Lung Screening 08/24/25 F17.210 - Nicotine dependence, cigarettes, uncomplicated Medications: New budesonide-formoterol 160-4.5 mcg/actuation (Breyna) 2 puffs inhalation BID 10.2 grams 6RF Discontinued tiotropium-olodaterol 2.5-2.5 mcg/actuation (Stiolto Respimat) Discontinued Reason: Order Completed 2 puffs inhalation QDAY HPI HPI Comments Details: The patient is a 54-year-old male who presents to the clinic today in referral for the evaluation of abnormal pulmonary function studies. The patient is regularly followed through the [place] [facility]. The patient served in the [employer] and was a golf war . He does report prior asbestos exposure. He has an approximate 30-nvca-pfbl smoking history, but is cut back to smoking 2 cigarettes/day. In addition to his personal smoking history, he did grow up in a smoking household. The patient is currently employed working in a sales position. He does report that he was diagnosed with asthma approximately 15 years ago by a [place] folder machine adjuster. Despite this, there is some confusion as to his diagnosis, given that the patient has been maintained on Stiolto and as needed albuterol. [place], he does report the presence of exertional shortness of breath along with an occasional productive cough. He does have a known history of obstructive sleep apnea and was previously prescribed nocturnal CPAP therapy. However, due to chronic sinus issues, the patient has been noncompliant with its use. He indicated that he previously underwent sinus surgery for polyps and a deviated septum. The patient did have pulmonary function studies completed through the [place] [facility] system in October 2024 which only demonstrated the presence of a moderate restrictive ventilatory impairment with preserved diffusing capacity. There was no evidence of COPD, nor was there a significant bronchodilator response. Low-dose CT imaging of the chest completed in August 2024 demonstrated a minor degree of scarring in the lingula without any suspicious nodules or masses. Mild bilateral emphysematous changes were noted. Intake Vital Signs 07/08/24 06:51 03/18/25 08:16 Height 5 ft 10 in 5 ft 10 in Weight: 230 lb BMI 33.0 BP 143/87 H Blood Pressure Location Rt brachial Position Sitting Respiration 20 H Pulse 84 Pulse Source Monitor Temp 97.9 F Temperature Source Temporal Artery Pulse Oximetry (%) 97 Oxygen Delivery Method room air Intake Visit Reasons: Abnormal PFT Wood Barker Required: No DME Vendor: [employer] Accompanied by: Self Is patient in pain?: No Allergies codeine Allergy (Verified 03/18/25 11:03) Other Medications ???Medication ???Instructions ???Recorded ???Confirmed ???Type metformin 500 mg tablet,extended 500 mg PO QDAY 06/19/24 03/18/25 H istory release 24 hr amlodipin (more content not included)... Normal [facility] Low Dose CT Lung Screeningon 09-22-[address] Lung Screening [facility] Imaging Services [address] [place] [id number] Lung Screening MR#: [id number] Acct: [id number] Name: PINEDA LUIS Rep #: [id number] : 1970 M 53 From: Silver Serrano MD PCP: [place] [facility] Status: REG CLI Study: Low Dose CT Lung Screening Date of Exam: 09/22 Exam# [id number] Ordering Dr: Dayana Cohn PJaniya [id number] STUDY: LOW DOSE CT LUNG CANCER SCREENING REASON FOR EXAM: Male, 53 years old. Nicotine dependence, cigarettes, uncomplicated RADIATION DOSAGE (If Supplied By Facility): CTDIvol = ( 4.02 ) mGy, DLP = ( 122.85 ) mGycm TECHNIQUE: No contrast was administered. Low dose technique was utilized (average mAS-38 and kVp 120). 1.25 mm axial source images with a slice interval of 1.25-mm were reconstructed in lung windows. 2.5 mm axial source images with a slice interval of 2.5-mm were reconstructed in lung windows. 5.0 mm axial source images with a slice interval of 5.0-mm were reconstructed in soft tissue windows. COMPARISON: 08/29/2023 Emphysema: Mild emphysema. Linear scar in the lingula. No noncalcified nodule or mass. Endobronchial lesion: None Aorta: No thoracic aortic aneurysm. CORONARY ARTERIES: Coronary artery calcification is seen. Heart: No cardiomegaly. Pulmonary artery: Normal Mediastinal nodes: Normal Other chest and abdominal findings: None CT/Low Dose CT Lung Screening IMPRESSION: Lung-RADS category 1 - Continue annual screening with LDCT in 12 months. IMPORTANT NOTES FOR USE: ACR Lung-RADS Version 1.1 Assessment Categories Release Date: 2018 Category: Coded 0-4 bases on nodule(s) with highest degree of suspicion. Negative screen is defined as categories 1 and 2; a positive screen is defined as categories 3 and 4. Category 3 and 4A nodules that are unchanged on interval CT should be coded as category 2, and individuals returned to screening in 12 months. Category 4X: Category 3 or 4 nodules with additional imaging findings that increase the suspicion of lung cancer, such as spiculation, GGN that doubles in size in 1 year, enlarged lymph notes, etc. Category Modifiers: S (significant finding unrelated to lung cancer) Electronically Signed: Silver Serrano MD at 13:47 EST , CC: TREVOR Cohn; [facility] Lobby Attendant: Signed Normal [facility] Bedside Glucoseon 07-08-2024 FINGERSTICK GLU 114 mg/dL High 74-106 [facility] Comment on above: Result Comment: ARCELIA TREY OF PATIENT CARE PER NURSING PROTOCOL Performed By: #### L 501.080 #### [facility] [address] [place], [address] Colonoscopy Reporton 024 Colonoscopy Report [facility] Medical Records Department [address] [place] [address] Colonoscopy Report MR#: [id number] Acct: [id number] Name: PINEDA LUIS Rep #: [id number] : 1970 53 From: Max Cohen MD PCP: [facility] Status:REG [facility] [place] Patient Name: Pineda Luis Procedure Date: 07/08/2024 7:26 AM Date of : 1970 Age: 53 Procedure: Colonoscopy Indications: Screening for colorectal malignant neoplasm Providers: Max Cohen MD Referring MD: [facility] Medicines: Propofol per Anesthesia Patient Profile: Refer to note in patient chart for documentation of history and physical. Last Colonoscopy: none. The patient's first colonoscopy is today. Complications: No immediate complications. Estimated blood loss: None. Procedure: Pre-Anesthesia Assessment: - Prior to the procedure, a History and Physical was performed, and patient medications and allergies were reviewed. The patient's tolerance of previous anesthesia was also reviewed. The risks and benefits of the procedure and the sedation options and risks were discussed with the patient. All questions were answered, and informed consent was obtained. Prior Anticoagulants: The patient has taken no anticoagulant or antiplatelet agents. ASA Grade Assessment: II - A patient with mild systemic disease. After reviewing the risks and benefits, the patient was deemed in satisfactory condition to undergo the procedure. After I obtained informed consent, the scope was passed under direct vision. Throughout the procedure, the patient's blood pressure, pulse, and oxygen saturations were monitored continuously. The adult colonoscope was introduced through the anus and advanced to the cecum, identified by the appendiceal orifice, ileocecal valve and palpation. The ileocecal valve, appendiceal orifice, and rectum were photographed. The entire colon was well visualized. The colonoscopy was performed without difficulty. The patient tolerated the procedure well. The quality of the bowel preparation was fair. Moderate Sedation: See the other procedure note for documentation of moderate sedation with intraservice time. Scope In: 7:44:38 AM Scope Withdrawal Time 0 hours 19 minutes 48 seconds Scope Out: 8:13:34 AM Total Procedure Duration Time 0 hours 28 minutes 56 seconds Findings: The perianal and digital rectal examinations were normal. Internal hemorrhoids were found during retroflexion. The hemorrhoids were moderate. A 3 mm polyp was found in the rectum. The polyp was semi-sessile. The polyp was removed with a cold biopsy forceps. Resection and retrieval were complete. Verification of patient identification for the specimen was done by the nurse using the patient's name, date and medical record number. Estimated blood loss was minimal. The exam was otherwise without abnormality on direct and retroflexion views. Multiple random colonic biopsies were performed as patient expressed that he has has intermitent diarrhea for years Impression: - Preparation of the colon was fair. - Internal hemorrhoids. - One 3 mm polyp in the rectum, removed with a cold biopsy forceps. Resected and retrieved. - The examination was otherwise normal on direct and retroflexion views. Recommendation: - Discharge patient to home (ambulatory). - High fiber diet indefinitely. - Await pathology results. - Repeat colonoscopy in 5-10 years for surveillance based on pathology results. - Return to my office PRN. - Continue present medications. Procedure Code(s): --- Professional --- 46752, Colonoscopy, flexible; with biopsy, single or multiple Diagnosis Code(s): --- Professional --- Z12.11, Encounter for screening for malignant neoplasm of colon D12.8, Benign neoplasm of rectum K64.8, Other hemorrhoids CPT copyright 2021 [employer]. All rights reserved. The codes documented in this report are preliminary and upon chief bank examiner review may be revised to meet current compliance requirements. Max Cohen MD 07/08/2024 8:23:51 AM This report has been signed electronically. Number of Addenda: 0 Note Initiated On: 07/08/2024 7:26 AM 07/08/24 0824 Date Max Mustafa Signature: Date (if indicated) CC: Dr. Max Cohen MD; [facility] Date Dictated: 07/08/24725 Date Transcribed: Lobby Attendant: SHANNAN Signed [facility] MR/POSTOP.ANE 07-08-2024 MR/POSTOP.[facility] Medical Records Department [address] [place] [address] Anesthesia Postop Eval I 07/08/24824 MR#: [id number] Acct: [id number] Name: PINEDA LUIS Rep #: [id number] : 1970 53 From: Luis Antonio Jaimes PCP: [facility] Status:REG [facility] Y Race: C Location: [place] [address] Anesthesia: Postop Eval I Current Vital Signs Temperature: 98.2 F Pulse Rate: 68 Blood Pressure: 107/74 Respiratory Rate: 16 Pulse Ox: 93 Oxygen Delivery Method: Room Air Assessment Airway patent: Yes Spontaneous unlabored respirations: Yes Mental status: Asleep nausea: No Vomiting: No Anesthesia Complication: No Fluid Hydration Crystalloid volume administer (ml): 60 Total IV fluid infused: 60 Progress Note Anesthesia document: Postop Eval 1 completed: Yes 07/08/24825 Date Luis Antonio Mustafa Signature: Date CC: Signed [facility] MR/[id number] 07-08-2024 MR/POST[address] Medical Records Department [address] [place] [address] Anesthesia Postop Eval II 07/08/24825 MR#: [id number] Acct: [id number] Name: PINEDA LUIS Rep #: [id number] : 1970 53 From: Chai Carter MD PCP: [facility] Status:REG SDC Y Race: C Location: [place] [address] Anesthesia Postop Eval I Sum Postop Eval Completion status Anesthesia document: Postop Eval 1 completed: Yes Anesthesia Postop Eval I Summary Anesthesia Postop Eval I Summary: Anesthesia Postop Eval I: Assessment Summary Airway patent Yes 07/08/24 08:26 [email or web address] Spontaneous unlabored Yes 07/08/24 08:26 [email or web address] respirations Mental status Asleep 07/08/24 08:26 [email or web address] nausea No 07/08/24 08:26 [email or web address] Vomiting No 07/08/24 08:26 [email or web address] Anesthesia Postop Eval I: Fluid Summary Crystalloid volume administer 60 07/08/24 08:26 [email or web address] (ml) Colloids volume administered ( ml) Blood Product volume administered (ml) Total IV fluid infused 60 07/08/24 08:26 [email or web address] Anesthesia Postop Eval I: Summary Notes Anesthesia Complication No 07/08/24 08:26 [email or web address] Anesthesia Complication Comment: Post-operative progress note Anesthesia: Postop Eval II Evaluation Mental status: Awake Pain Level: 0 nausea: No Vomiting: No 07/08/24825 Date Chai Carter MD Cosigner Signature: Date CC: Signed Normal [facility] Surgery Specimen Level Zeina 07-08-2024 Surgery Specimen Level IV ---- Patient Age/Sex Location Account Attending Physician ---- PINEDA LUIS 53/M EN [id number] Dr. Max Cohen MD ---- Specimen: [id number] Received: 07/08/24 Status: JIMBO Cage Num: [id number] Spec Type: COLON BX Subm Dr: Dr. Max Cohen MD HEADER OPERATION: Colonoscopy with biopsy PRE-OP DIAGNOSIS: Colon cancer screening TISSUE SUBMITTED: A- Random colon, B- Rectum polyp biopsy ---- MICROSCOPIC DIAGNOSIS A. Colon, random biopsy: No pathologic change. B. Rectal polyp, biopsy: Hyperplastic polyp. AM. 07/09/2024 MICROSCOPIC DESCRIPTION Slides are reviewed. GROSS DESCRIPTION A. Received in fixative is one container labeled with the patient's name and designated Random colon biopsy. The specimen consists of multiple irregular fragments of light valenzuela soft tissue that in aggregate measure 1.5 x 0.5 x 0.1 cm. The specimen is totally submitted in one cassette. B. Received in fixative is one container labeled with the patient's name and designated Rectum polyp biopsy. The specimen consists of one irregular fragment of light valenzuela soft tissue that measures 0.3 x 0.3 x 0.1 cm. The specimen is totally submitted in one cassette. SJ 07/08/2024 TC:5 [facility]:[id number] ---- Patient Age/Sex Location Account Attending Physician ---- PINEDA LUIS 53/M EN [id number] Dr. Max Cohen MD ---- Signed (signature on file) Dr. Phan Lawson DO 07/09/24 1126 ---- Normal [facility] Comment on above: Performed By: #### P SUIV #### [facility] [address] [place], [address] Surgery Visit Reporton 06-19 Surgery Visit Report [facility] [address] [place] [address] OFFICE VISIT Date of Service: 06/19/24 MR#: [id number] Acct: [id number] Name: PINEDA LUIS Rep #: [id number] : 1970 Provider: Dr. Max sanchez MD Age/Sex: 53/M Location: [facility] Status: Signed Intake Vital Signs 02/25/24 11:18 06/19/24 08:22 Height 5 ft 10 in 5 ft 10 in Weight: 230 lb 2 oz BMI 33.0 BP 135/83 H Blood Pressure Location Rt brachial Position Sitting Respiration 18 Pulse 82 Pulse Source Monitor Temp 97.5 F L Temp Source Temporal Pulse Oximetry (%) 97 Oxygen Delivery Method room air Intake Visit Reasons: COLONOSCOPY- PERSISTENT DIARRHEA Chief Complaint: colonoscopy- persistent diarrhea Is patient in pain?: No Allergies codeine Allergy (Verified 06/19/24 08:23) Other Medications ???Medication ???Instructions ???Recorded ???Confirmed ???Type atorvastatin 20 mg tablet 20 mg PO DAILY 09/13/20 03/23/22 History cholecalciferol (vitamin D3) 50 1 tab PO DAILY 09/13/20 03/23/22 History mcg (2,000 unit) tablet amlodipine 5 mg tablet 5 mg PO 03/23/22 03/23/22 History metformin 500 mg tablet,extended 500 mg PO QDAY 06/19/24 06/19/24 History release 24 hr PFSH Medical History Contact with and (suspected) exposure to other viral communicable diseases Asthma Lung disease HTN (hypertension) Surgical History History of foot surgery History of eye surgery History of nasal surgery h/o right shoulder arthroscopy H/O umbilical hernia repair History of cholecystectomy History of tonsillectomy Family History Mother Myocardial infarction Liver cancer Lymph node cancer Lung cancer Social History household members: spouse and children housing: house Smoking Status: Current every day smoker tobacco type: cigarettes alcohol intake: current alcohol intake frequency: a few times a week what type of physical activity do you participate in: walking do you feel safe at home: Yes HPI HPI HPI: The patient is a 53-year-old male who is being seen today for colonoscopy. He has never had a colonoscopy. He states that he has had longstanding issues with soft stools and diarrhea for probably 30+ years. There is significant blood in the stools or other GI issues or complaints.. He is not aware of any family history of colon polyps or colon cancer ROS General General: Yes fatigue; No weight change, appetite, colon cancer, breast cancer or weakness HEENT HEENT: Yes eye injury and eye surgery; No difficulty swallowing, swollen glands or hoarseness Endo Endocrine: Yes diabetes mellitus; No thyroid disease, thyroid cancer, Hair loss, heat intolerance or cold intolerance Skin Skin: No rash or changing moles Musc Musculoskeletal: Yes back problems; No arthritis, rheumatoid arthritis, gout or joint pain Cardio Cardiovascular: Yes high blood pressure; No murmur, pacemaker, heart disease, atrial fibrillation, heart attack, heart stent, palpitations, shortness of breat with exertion or chest pain Psych Psychiatric: No depression, anxiety or hearing voices Resp Respiratory: No shortness of breath, Yes sleep apnea, No cough, Yes COPD, Yes asthma, No emphysema and No wheezing Gastro Gastrointestinal: Yes abdominal pain, No nausea or vomiting, Yes diarrhea, No constipation, No blood in stool, No acid reflux, No hemorrhoids, No ulcers, No gallbladder problem and No black,tarry stools Sudeep Hematologic: No blood thinners, No blood disorders, No bleeding, No anemia and No blood clots Neuro Neurologic: No numbness, No tingling and No weakness Exam Const General: cooperative, healthy appearing and no acute distress Nutritional Appearance: overweight HENMT Head: normal to inspection Eyes General: appearance normal, both eyes and all related structures Neck Neck: normal visual inspection GI Inspection: normal to inspection Assessment and Plan Assessment and Plan (1) Colon cancer screening: Status: Acute Plan: The patient is a 53-year-old male who presents to set up a colonoscopy. He states he has had issues with longstanding diarrhea and occasional cramping. I have recommended colonoscopy. We discussed the details of the planned procedure including the risks benefits and alternatives. He wishes to proceed. This will be scheduled in a timely manner. Coding Level of Care Code Off vis,new,level 3 Diagnoses Colon cancer screening Z12.11 06/19/24 1244 Date Max Talbert (more content not included)... Normal [facility] XR Chest 2 Viewson No acute cardiopulmonary disease. -------- FINAL REPORT -------- Dictated By: Colton Pineda Dictated Date: 06/18/2024 15:55 Assigned Physician: Colton Pineda Reviewed and Electronically Signed By: Colton Pineda Signed Date: 06/18/2024 15:59 Workstation ID: [id number] Transcribed By: Self Edit Transcribed Date: 06/18/2024 15:55 POWERSCRIBE EXAM: XR CHEST 2 VIE WS DATE OF EXAM: 06/18/2024 3:35 PM HISTORY: SOB, pulmonary edema suspected COMPARISON: None FINDINGS: No pulmonary consolidation, pleural effusion or pneumothorax. Cardiomediastinal contour is normal. No acute osseous abnormality. POWERSCRIBE Colton Pineda MD - 06/18/2024 EXAM: XR CHEST 2 VIEWS DATE OF EXAM: 06/18/2024 3:35 PM HISTORY: SOB, pulmonary edema suspected COMPARISON: None FINDINGS: No pulmonary consolidation, pleural effusion or pneumothorax. Cardiomediastinal contour is normal. No acute osseous abnormality. IMPRESSION: No acute cardiopulmonary disease. -------- FINAL REPORT -------- Dictated By: Colton Pineda Dictated Date: 06/18/2024 15:55 Assigned Physician: Colton Pineda Reviewed and Electronically Signed By: Colton Pineda Signed Date: 06/18/2024 15:59 Workstation ID: [id number] Transcribed By: Self Edit Transcribed Date: 06/18/2024 15:55 [employer] Radiology Study observation (narrative) [employer] XR Chest 2 ViewsOrdered By: Colton Pineda on 06-18-2024 [employer] Work Phone: CNOVon 02-25-2024 CNOV Office Visit (UCWSTR ) PINEDA LUIS ([id number]) 1970 M Date Time Provider Department 02/25/24 10:45 AM GABRIELA VANG [facility] During your visit today, we recorded the following information about you: Temperature Pulse Respiration Blood pressure 97.5 degrees 66/minute 16/minute 122/60 Weight 103.3 kg Gabriela Vang APRN.FEEDER LOADER 02/25/2024 11:06 AM Signed Subjective Diarrhea Associated symptoms include abdominal pain. Pertinent negatives include no vomiting. Pineda Luis is a 53 year old male who presents with abdominal pain, diarrhea and fever. Symptoms started 2 days ago. States he took imodium for diarrhea but it has persisted. Complains of fatigue and states he slept 60 of the last 72 hours. Denies back pain or urinary symptoms. Describes pain as cramping. States he has dark urine today, denies burning or frequency. Review of Systems Constitutional: Positive for fever. Respiratory: Negative. Cardiovascular: Negative. Gastrointestinal: Positive for abdominal pain and diarrhea. Negative for blood in stool, nausea and vomiting. Genitourinary: Negative for dysuria, flank pain, frequency, hematuria and urgency. BP 122/60 Pulse 66 Temp 36.4 ?C (97.5 ?F) Resp 16 Wt 103.3 kg (227 lb 11.8 oz) SpO2 98% BMI 31.76 kg/m? 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/07/2015 Eczema, dyshidrotic 05/07/2015 HTN (hypertension) 05/07/2015 Obstructive sleep apnea 05/07/2015 On CPAP Positive PPD, treated 05/07/2015 PTSD (post-traumatic stress disorder) 05/07/2015 Seasonal allergies 05/07/2015 Smoker 05/07/2015 Started at age 14 up to a 1 PPD (had quit for about 10 yrs) PAST SURGICAL HISTORY Procedure Laterality Date EGD TRANSORAL BIOPSY SINGLE/MULTIPLE 06/21/15 gastritis HERNIA REPAIR HX 07/13/15 LAPS SURG CHOLECYSTECTOMY W/CHOLANGIOGRAPHY 07/13/15 normal IOC PAST SURGICAL HISTORY OF 2006 ventral hernia repair PAST SURGICAL HISTORY OF 2012 partial amputation of left great toe REMOVAL OF TONSILS,12+ Y/O 20 yo Tonsillectomy ALLERGIES Codeine MEDICATIONS amLODIPine (NORVASC) 5 mg tablet atorvastatin (LIPITOR) 20 mg tablet cholecalciferol (VITAMIN D3) 50 mcg (2,000 unit) tablet benzonatate (TESSALON PERLE) 100 mg capsule Take 1-2 capsules tid prn, no more than 6 in 24 hours. (Patient not taking: Reported on 02/25/2024) loratadine (CLARITIN) 10 mg tablet Take 10 mg by mouth once daily. (Patient not taking: Reported on 02/25/2024) FAMILY HISTORY Problem Relation Age of Onset Coronary Artery Disease Mother 45 Diabetes Mother Cancer Mother cervical Cancer Paternal Grandfather bone cancer Social History Tobacco Use Smoking status: Every Day Packs/day: 1.00 Years: 35.00 Additional pack years: 0.00 Total pack years: 35.00 Types: Cigarettes Smokeless tobacco: Never Substance Use Topics Alcohol use: Yes Alcohol/week: 1.0 standard drink of alcohol Types: 1 Cans of Beer (12oz) per week Comment: 2-3 beers/week Drug use: No Objective Physical Exam Vitals and nursing note reviewed. Constitutional: General: He is not in acute distress. Appearance: Normal appearance. Cardiovascular: Rate and Rhythm: Normal rate. Pulmonary: Effort: Pulmonary effort is normal. Abdominal: General: Bowel sounds are increased. Tenderness: There is abdominal tenderness in the right upper quadrant and right lower quadrant. There is guarding. Neurological: Mental Status: He is alert. ASSESSMENT/PLAN: 1. Abdominal pain, unspecified abdominal location - ICD9: 789.00, ICD10: R10.9 - offered urinalysis and stat labs through express care, patient declined. - referred to ER for further evaluation. Patient very tender on right upper and lower quadrant on exam. Gabriela Vang APRN.FEEDER LOADER Allergies As of Date: 02/25/2024 Noted Allergy Reaction CODEINE 09/01/2005 14 - Other: See Comments Comments: Urinated blood Date Reviewed: 02/25/2024 Reviewed by: Dorothea Ram - Fully Assessed Reason for Visit: Diarrhea [35] Cmt: Fever x3 day Primary Visit Diagnosis:Abdominal pain, unspecified abdominal location [R10.9] Prescriptions as of 02/25/2024 - amLODIPine (NORVASC) 5 mg tablet - atorvastatin (LIPITOR) 20 mg tablet - cholecalciferol (VITAMIN D3) 50 mcg (2,000 unit) tablet - benzonatate (TESSALON PERLE) 100 mg capsule Take 1-2 capsules tid prn, no more than 6 in 24 hours. - loratadine (CLARITIN) 10 mg tablet Take 10 mg by mouth once daily. Problem List As Of Date 02/25/2024 Noted Resolved HTN (hypertension) [I10] 05/07/2015 Seasonal allergies [J30.2] 05/07/2015 Smoker [F17.200] 05/07/2015 Positive PPD, treated [R76.11] 05/07/2015 Obstructive sleep apnea [G47.33] 05/07/2015 PTSD (post-traumatic stress disorder) [F43.10] 05/07/2015 Deviated nasal bone [J34.2] 05/07/2015 Eczema, dyshidrotic [L30.1] more content not included)... Normal [facility] Basophil percentageon 2021 Creatinine [Mass/Vol] 1.19 mg/dL 0.70-1.30 [facility] Work Phone: No Panel Informationon 06-09 Bedside Estimated GFR (eGFR) > 60 mL/min >60 [facility] Work Phone: No Panel Informationon 03-23 POC SARS CoV-2 Antigen Negative [facility] Work Phone: CT LOW DOSE LUNG SCREENon CT LOW DOSE LUNG SCREEN [facility] [address], [place] [address] Name: PINEDA LUIS Phys: RAJTA CORTEZ C.N.P. : [birth year] Age: 51 Sex: M Acct: [id number] Loc: RAD CT Exam Date: 11/23/21 Status: REG CLI Radiology No.: Unit Number: [id number] Exam # Type/Exam [id number] CT / CT LOW DOSE LUNG SCREEN EXAMINATION: LOW DOSE SCREENING CT OF THE CHEST WITHOUT CONTRAST11/23/2021 6:56 am TECHNIQUE: Low dose lung cancer screening CT of the chest was performed without the administration of intravenous contrast. Multiplanar reformatted images are provided for review. Dose modulation, iterative reconstruction, and/or weight based adjustment of the mA/kV was utilized to reduce the radiation dose to as low as reasonably achievable. COMPARISON: None. HISTORY: ORDERING SYSTEM PROVIDED HISTORY: TECHNOLOGIST PROVIDED HISTORY: Reason for Exam: . 30 pack-year smoking history FINDINGS: The heart is normal in size. Atherosclerosis seen of the coronary arteries and aorta. The great vessels appear normal in caliber. Borderline lymph nodes contain fatty vance. No suspicious findings seen in the visualized portion of the abdomen. The abdomen is not evaluated in detail. No pulmonary consolidation is identified. No pneumothorax or pleural effusion.A 3 mm right middle lobe nodule is identified on image 78. No aggressive osseous lesions visible. Degenerative changes seen in the spine. IMPRESSION: Small lung nodule. For patients with appropriate lung cancer risk, annual CT screening is recommended. Atherosclerosis with coronary artery calcifications Information below is for Lung nodule tracking purposes: Nodule: S3 Other Findings: P-CAC Change: Na Recall : 1yr scr Recall Type: LDCT LungRads: 2s Electronically signed By Aaron Wiseman MD 11/23/2021 1:26:16 PM EST Workstation ID : [id number] < > Reported By: AARON WISEMAN M.D. Signed In Fluency By: AARON WISEMAN M.D. << Signature on File>> Reported By: AARON WISEMAN M.D. Signed By: AARON WISEMAN M.D. Tests performed at: [address] [address] [address] [facility] [address] LUNG SCREEN WO IVCONon [facility] Vital Signs Date Time Vital Sign Value Performing Clinician Facility 04-15-2025 12:45-0400 Body height 177.8 cm [facility] 04-15-2025 12:45-0400 Body weight 101.15 kg [facility] 04-15-2025 12:45-0400 Heart rate 87 /min [facility] 04-15-2025 12:45-0400 SaO2% (BldA) [Mass fraction] 98 % [facility] 03-18-2025 08:16-0400 Body height 177.8 cm [facility] 03-18-2025 08:16-0400 Body mass index (BMI) [Ratio] 33 kg/m2 [facility] 03-18-2025 08:16-0400 Body temperature 97.9 [degF] [facility] 03-18-2025 08:16-0400 Body weight 104.32 kg [facility] 03-18-2025 08:16-0400 Diastolic blood pressure 87 mm[Hg] [facility] 03-18-2025 08:16-0400 Heart rate 84 /min [facility] 03-18-2025 08:16-0400 Respiratory rate 20 /min [facility] 03-18-2025 08:16-0400 SaO2% (BldA) [Mass fraction] 97 % [facility] 03-18-2025 08:16-0400 Systolic blood pressure 143 mm[Hg] [facility] 02-25-2024 10:46-0400 Body mass index (BMI) [Ratio] 31.76 kg/m2 Gabriela Vang APRN.FEEDER LOADER Work Phone: [facility] 02-25-2024 10:46-0400 Body temperature 97.5 [degF] Gabriela [employer]ler[employer] SUPERINTENDENT.FEEDER LOADER Work Phone: [facility] 02-25-2024 10:46-0400 Body weight 103.3 kg Gabriela [employer]ler[employer] SUPERINTENDENT.FEEDER LOADER Work Phone: [facility] 02-25-2024 10:46-0400 Diastolic blood pressure 60 mm[Hg] Gabriela [employer]ler[employer] SUPERINTENDENT.FEEDER LOADER Work Phone: [facility] 02-25-2024 10:46-0400 Heart rate 66 /min Gabriela P[employer]ler[employer] SUPERINTENDENT.FEEDER LOADER Work Phone: [facility] 02-25-2024 10:46-0400 Respiratory rate 16 /min Gabriela [employer]ler[employer] SUPERINTENDENT.FEEDER LOADER Work Phone: [facility] 02-25-2024 10:46-0400 SaO2% (BldA) [Mass fraction] 98 % Gabriela P[employer]ler[employer] SUPERINTENDENT.FEEDER LOADER Work Phone: [facility] 02-25-2024 10:46-0400 Systolic blood pressure 122 mm[Hg] Gabriela [employer]ler[employer] SUPERINTENDENT.FEEDER LOADER Work Phone: [facility] 03-23-2022 10:58-0400 Body height 180.34 cm [facility] Work Phone: 03-23-2022 10:58-0400 Body mass index (BMI) [Ratio] 32.8 kg/m2 [facility] Work Phone: 03-23-2022 10:58-0400 Body temperature 98.6 [degF] [facility] Work Phone: 03-23-2022 10:58-0400 Body weight 106.59 kg [facility] Work Phone: 03-23-2022 10:58-0400 Diastolic blood pressure 80 mm[Hg] [facility] Work Phone: 03-23-2022 10:58-0400 Heart rate 94 /min [facility] Work Phone: 03-23-2022 10:58-0400 Respiratory rate 15 /min [facility] Work Phone: 03-23-2022 10:58-0400 SaO2% (BldA) [Mass fraction] 99 % [facility] Work Phone: 03-23-2022 10:58-0400 Systolic blood pressure 126 mm[Hg] [facility] Work Phone: 01-31-2022 19:25-0400 Body temperature 98.6 [degF] Mali Davi [employer] SUPERINTENDENT.FEEDER LOADER Work Phone: [facility] 01-31-2022 19:25-0400 Body weight 111.31 kg Mali Davi [employer] SUPERINTENDENT.FEEDER LOADER Work Phone: [facility] 01-31-2022 19:25-0400 Diastolic blood pressure 82 mm[Hg] Mali Davi [employer] SUPERINTENDENT.FEEDER LOADER Work Phone: [facility] 01-31-2022 19:25-0400 Heart rate 99 /min Mali Davi [employer] SUPERINTENDENT.FEEDER LOADER Work Phone: [facility] 01-31-2022 19:25-0400 Respiratory rate 18 /min Mali Davi [employer] SUPERINTENDENT.FEEDER LOADER Work Phone: [facility] 01-31-2022 19:25-0400 SaO2% (BldA) [Mass fraction] 96 % Mali Davi [employer] SUPERINTENDENT.FEEDER LOADER Work Phone: [facility] 01-31-2022 19:25-0400 Systolic blood pressure 136 mm[Hg] Mali Davi [employer] SUPERINTENDENT.FEEDER LOADER Work Phone: [facility] 07-03-2018 13:28-0400 BMI (Body Mass Index) 32.08 kg/m2 [facility] 07-03-2018 13:28-0400 BP Diastolic 91 mm[Hg] [facility] 07-03-2018 13:28-0400 BP Systolic 143 mm[Hg] Juan Luis Mcdaniels [facility] 07-03-2018 13:0400 Height 180.3 cm Juan Luis Mcdaniels [facility] 07-03-2018 13:0400 Pulse (Heart Rate) 90 /min Juan Luis Mcdaniels [facility] 07-03-2018 13: Weight 104.33 kg Juan Luis [address] [facility] Encounters Encounter Date Encounter Type Care Provider Facility Start: 04-17-2025 ambulatory Festus Gerardo Facility:[facility] Start: 04-17-2025 Non-patient / Non-visit Dr. Festus starr [facility] Start: 04-15-2025 End: 04-15-2025 ambulatory [facility] -Pulmonary Services/Neurology Start: 04-15-2025 End: 04-15-[address] Festus Gerardo DO -Pulmonary Services/Neurology Work Phone: Start: 04-15-2025 End: 04-15-2025 [facility] Facility:[facility] Start: 03-18-2025 End: 03-18-[address] Festus Gerardo DO -[facility] Work Phone: Start: 03-18-2025 End: 03-18-2025 [facility] Work Phone: Start: 09-22-2024 End: 09-22-2024 [facility] Facility:[facility] Start: 07-08-2024 [facility] Facility:[facility] Start: 07-08-2024 End: 07-08-2024 ambulatory Max Cohen Facility:[facility] Start: 06-19-2024 End: 06-19-2024 ambulatory Max Cohen Facility:[facility] Start: 06-18-2024 End: 06-18-2024 Evaluation and management of inpatient Bianca Arreola [facility] Start: 06-18-2024 End: 06-18-2024 Subsequent hospital visit by physician Bianca Arreola [facility] Comment on above: SOB (shortness of br eath) Start: 02-25-2024 End: 02-25-2024 ambulatory Facility:[facility] Start: 02-25-2024 End: 02-25-2024 Patient encounter procedure Gabriela TerryVidya GARCIAFEEDER LOADER Work Phone: [facility] Comment on above: Abdominal pain, unsp ecified abdominal location (Primary Dx) Start: 09-26-2023 Non-patient / Non-visit [facility] Start: 09-26-2023 End: 09-26-2023 ambulatory [facility] Work Phone: Start: 09-26-2023 End: 09-26-2023 Patient encounter procedure [facility]-Pulmonary Services/Neurology Work Phone: Start: 08-29-2023 End: 08-29-2023 ambulatory [facility] Work Phone: Start: 08-29-2023 End: 08-29-2023 Patient encounter procedure [facility]-Cat Scan, [facility] Work Phone: Start: 08-29-2022 End: 08-29-2022 ambulatory [facility] Comment on above: Spirometry Start: 08-29-2022 End: 08-29-2022 Patient encounter procedure [facility]m [facility] Work Phone: SANGEET[facility] PEDRAZA Start: 08-29-2022 End: 08-29-2022 ambulatory [facility]m [facility] Work Phone: [facility] Comment on above: Spirometry Start: 08-29-2022 End: 08-29-2022 Patient encounter procedure [facility]m [facility] Work Phone: SANGEET[facility] PEDRAZA Start: 08-28-2022 End: 08-28-2022 ambulatory [facility] Work Phone: Start: 08-28-2022 End: 08-28-2022 Patient encounter procedure [facility] - [facility] Start: 06-09-2022 End: 06-09-2022 ambulatory [facility] Work Phone: Start: 06-09-2022 End: 06-09-2022 Patient encounter procedure [facility], [facility] Start: 05-16-2022 End: 05-16-2022 ambulatory [facility] Work Phone: Start: 05-16-2022 End: 05-16-2022 Patient encounter procedure [facility] Start: 03-23-2022 End: 03-23-2022 Patient encounter procedure [facility] Start: 01-31-2022 End: 01-31-2022 Patient encounter procedure Mali Tomlinson [employer] SUPERINTENDENT.FEEDER LOADER Work Phone: [facility] Comment on above: Cough (Primary Dx); Chest congestion; Wheezing Start: 11-23-2021 End: 11-23-2021 Subsequent [facility] Comment on above: TOBACCO DEPENDANCE Start: 12-01-2020 End: 12-01-2020 Orders Only Kylie Ball Work Phone: [facility] Start: 07-23-2018 Patient encounter JUAN LUIS [facility] Start: 07-03-2018 End: 07-07-2018 Patient encounter [facility] Start: 07-03-2018 End: 07-03-2018 Patient encounter [facility] Start: 07-03-2018 End: 07-03-2018 Office outpatient new 30 minutes Juan Luis Mcdaniels Work Phone: 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 (Primary Dx); Azoospermatism Start: 06-13-2018 Patient encounter JUAN LUIS [facility] Start: 05-07-2015 Patient encounter status Provider Cc [facility] Work Phone: Procedures Date Procedure Procedure Detail Performing Clinician Start: 06-18-2024 Radiologic exam ches t 2 views Víctor Liao MD Work Phone: Start: 08-29-2023 CT of chest Start: 08-29-2022 Brncdilat rspse spmt ry pre&post-brncdilat admn Provider [facility] Start: 08-28-2022 MRI of cervical spine Start: 06-09-2022 CT of chest and abdomen [facility] Start: 05-16-2022 MRI of joint of lowe r extremity [facility] Start: 05-16-2022 X-ray of eye for foreign body [facility] Start: 11-23-2021 CT LUNG SCREEN DAVID Cortez Work Phone: Start: 06-16-2016 Adult depression screening assessment Provider [facility] H/O: surgery History of nasal surgery [facility] Plan of Treatment Date Care Activity Detail Author Start: 05-02-2033 DTaP,Tdap,and Td Vaccines (3 - Td or Tdap) DTaP,Tdap,and Td Vaccines (3 - Td or Tdap) [facility] Start: 05-02-2033 Urine microalbumin profile DTaP,Tdap,Td Vaccine (5 - Td or Tdap) [facility] Start: 02-24-2025 BP Controlled (<130/80) BP Controlle d (<130/80) [facility] Start: 06-19-2024 Adolescent depressio n screening assessment Depression Screening [facility] Start: 06-19-2024 Hepatitis C screening Hepatitis C Sc reening [facility] Start: 06-19-2024 HIV screening HIV Screening [facility] Start: 06-19-2024 Lipid panel Cholesterol Sc reening (Lipid Panel) [facility] Start: 06-19-2024 Screening for malign ant neoplasm of colon Colorectal Cancer Screening: Colonoscopy [facility] Start: 06-19-2024 Social Influencers o f Health Screening Social Influencers of Health Screening [facility] Start: 05-25-2024 COVID-19 Vaccine ( season) COVID-19 Vaccine ( season) [facility] Start: 05-25-2024 Influenza vaccination [facility] Start: 09-24-2023 Behavioral Health Screening Behavioral Health Screening [facility] Start: 05-25-2023 Covid-19 Vaccine ( season) Covid-19 Vaccine ( season) [facility] Start: 02-24-2023 Tetanus vaccination Tetanus: Every [address] [facility] Start: 02-24-2023 Urine microalbumin profile DTAP,TDAP,TD (2 - Td or Tdap) [facility] Start: 11-23-2022 Influenza vaccination LUNG CANCER SC REENING [facility] Start: 11-23-2022 Screening for malign ant neoplasm of lung Lung Cancer Screening [facility] Start: 05-25-2022 Influenza vaccination [facility] Start: 01-31-2022 End: 02-14-2022 Influenza virus A and B RNA and SARS-CoV-2 (COVID-19) N gene panel - Respiratory specimen by MANE with probe detection COVID WITH FLUA+B, ROUTINE Microbiology Routine Cough Chest congestion Expected: 01/31/2022, Expires: 02/14/2022 [facility] Work Phone: Comment on above: Expected: 01/31/2022 , Expires: 02/14/2022 Start: 11-27-2021 COVID-19 VACCINE (3 - Booster for Pfizer series) COVID-19 VACCINE (3 - Booster for Pfizer series) [facility] Start: 09-24-2021 DEPRESSION ASSESSMENT DEPRESSION ASS ESSMENT [facility] Start: 08-24-2021 COVID-19 VACCINE (3 - Booster for Pfizer series) COVID-19 VACCINE (3 - Booster for Pfizer series) [facility] Start: 05-25-2021 Influenza vaccination INFLUENZA (#1) [facility] Start: 05-25-2020 Influenza vaccinatio n given Sequential Influenza Vaccine (#1) [facility] Start: 2019 Administration of he rpes zoster vaccine Zoster Vaccines (1 of 2) [facility] Start: 2019 Screening for malign ant neoplasm of colon [facility] Start: 2019 SHINGRIX VACCINE (1 of 2) SHINGRIX VACCINE (1 of 2) [facility] Start: 2019 Zoster Vaccines (1 of 2) Zoster Vacc melanie (1 of 2) [facility] Start: 10-02-2019 DIABETES SCREEN DIABETES SCREEN [facility] Start: 10-02-2019 Diabetes Screening Diabetes Screenin g [facility] Start: 07-03-2018 End: 07-04-2019 Follitropin Qn Follicle Stimulating Hormone Routine 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 Expected: 07/03/2018, Expires: 07/04/2019 [facility] Comment on above: Expected: 07/03/2018 , Expires: 07/04/2019 Start: 07-03-2018 End: 07-04-2019 Lutropin Qn Luteinizing Hormone Routine 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 Expected: 07/03/2018, Expires: 07/04/2019 [facility] Comment on above: Expected: 07/03/2018 , Expires: 07/04/2019 Start: 07-03-2018 End: 07-04-2019 Testosterone, Free and Total Testosterone, Free and Total Routine 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 Expected: 07/03/2018 (Approximate), Expires: 07/04/2019 [facility] Comment on above: Expected: 07/03/2018 (Approximate), Expires: 07/04/2019 Start: 05-25-2018 Influenza vaccination SEQUENTI AL INFLUENZA VACCINE (#1) [facility] Start: 06-16-2017 Adult depression screening assessment DEPRESSION SCREENING [facility] Start: 2014 COLOGUARD (FIT-DNA) COLOGUARD (FIT-D NA) [facility] Start: 2014 Colonoscopy COLONOSCOPY [facility] Start: 2014 COLORECTAL CANCER SCREENING COLORECTAL CANCER SCREENING [facility] Start: [address] COLONOGRAPHY [facility] Start: 2014 FECAL OCCULT BLOOD FECAL OCCULT BLOO D [facility] Start: 2014 Screening for malign ant neoplasm of colon [facility] Start: 2014 SIGMOIDOSCOPY SIGMOIDOSCOPY [facility] Start: 12-10-2012 Hepatitis B Vaccine (2 of 3 - 19+ 3-dose series) Hepatitis B Vaccine (2 of 3 - 19+ 3-dose series) [facility] Start: 2004 Lipid panel Lipid Screening [facility] Start: 2004 LIPID SCREEN LIPID SCREEN [facility] Start: 1999 Zoledronic acid therapy ALPHA- 1 ANTITRYPSIN DEFICIENCY SCREENING [facility] Start: 1988 Hepatitis B Vaccines (1 of 3 - 19+ 3-dose series) Hepatitis B Vaccines (1 of 3 - 19+ 3-dose series) [facility] Start: 1988 ONE PNEUMOVAX PRIOR TO AGE 65 ONE PNEUMOVAX PRIOR TO AGE 65 [facility] Start: 1987 ANNUAL PCP TEAM BELL CLERK HANNAH DISEASE VISIT ANNUAL PCP TEAM CHRONIC DISEASE VISIT [facility] Start: 1987 BP CONTROLLED (<130/80) BP CONTROLLE D (<130/80) [facility] Start: 1987 Hepatitis C antibody , confirmatory test Hepatitis C Screening [facility] Start: 1987 SPIROMETRY SPIROMETRY [facility] Start: 1985 COVID-19 Vaccine (1 of 2) COVID-19 Vaccine (1 of 2) [facility] Start: 1984 HIV screening [facility] Screening [facility] Start: 1981 Adolescent depressio n screening assessment Depression Screening (PHQ9) [facility] Start: 1975 PNEUMOCOCCAL (1 - PCV) PNEUMOCOCCAL (1 - PCV) [facility] Start: 1974 COVID-19 VACCINE (1) COVID-19 VACCIN E (1) [facility] Start: 1972 History and physical examination, annual for health maintenance Wellness Visit [facility] Start: 1969 HEPATITIS B (1 of 3 - 3-dose series) HEPATITIS B (1 of 3 - 3-dose series) [facility] Start: 1969 Prostate specific antigen measurement PSA Level [facility] Start: 1969 Tetanus vaccination TETANUS EVERY [address] [facility] CT Chest [facility] Follitropin Qn Follicle Stimula ting Hormone Routine 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 07/03/2018 2:[address] [facility] LUNG DIFFUSION CAPAC ITY (DLCO) LUNG DIFFUSION CAPACITY (DLCO) PFT Routine Bronchitis, not specified as acute or chronic 08/29/2022 11:31 AM [facility] LUNG VOLUMES LUNG VOLUMES PFT Routine Bronchitis, not specified as acute or chronic 08/29/2022 11:31 AM EST [facility] Lutropin Qn Luteinizing Horm one Routine 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 07/03/2018 2:[address] [facility] SPIROMETRY - BASELIN E AND POST DILATOR SPIROMETRY - BASELINE AND POST DILATOR PFT Routine Bronchitis, not specified as acute or chronic 08/29/2022 11:31 AM EST [facility] Testosterone, Free a nd Total Testosterone, Free and Total Routine 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 07/03/2018 2:[address] [facility] Walking distance 6 minutes [facility] Immunizations Immunization Date Immunization Notes Care Provider Marlen wilks 2022 influenza virus vaccine, unspecified formulation Gabriela Vang APRN.[facility] Work Phone: [facility] 02-24-2013 tetanus toxoid, redu jigar diphtheria toxoid, and acellular pertussis vaccine, adsorbed Provider [facility] Work Phone: Payers Date Payer Category Payer Unknown [id number] [id number] Self-pay [id number] 2024 Unknown [id number] 2022 Unknown [id number] 2021 Unknown [id number] 2019 Unknown 2019 Unknown MMO MMO [employer] [id number] 2019-Present [phone] [address] [place] [address] O [id number] 2019 Unknown [id number] 1970 Unknown [id number] 1970 Unknown [id number] 1969 Unknown [id number] Unknown [id number] Unknown [id number] Unknown [id number] Unknown [id number] Unknown [id number] Unknown [id number] Unknown [id number] Social History Date Type Detail Facility Start: 07-03-2018 End: 07-03-2024 Tobacco smoking status NHIS Current every day smoker [facility] Work Phone: History of tobacco use Cigar Smoker [facility] Start: 1970 Sex Assigned At Not on file [facility] Start: 07-03-2018 End: 02-25-2024 Tobacco use and exposure Never used [facility] Start: 07-03-2018 End: 02-25-2024 Alcohol intake Current drinker of alcohol (finding) [facility] Start: 07-03-[address] [facility] Start: 05-07-2015 End: 09-01-2020 Cigarettes smoked current (pack per day) - Reported 1 [facility] Start: 07-13-2015 History SDOH Alcohol Comment 2-3 beers/week [facility] Start: 01-21-2022 End: 01-31-2022 Exposure to SARS-CoV-2 (event) Not sure [facility] Work Phone: Start: 03-23-2022 End: 03-23-2022 Tobacco smoking status DEIS Unknown if ever smoked [facility] Start: 03-23-2022 Heavy [facility] Start: 11-02-2020 Cigarettes [facility] Start: 1970 Sex Assigned At Male [facility] History of tobacco use Cigarette Smoker [facility] Work Phone: Start: 09-01-2020 End: 02-25-2024 Tobacco use panel [facility] National Score (1-10 0), lower number is lower risk Not on file [facility] Start: 06-18-2024 Gender identity Identifies as male gender (finding) [facility] Start: 06-18-2024 Sexual orientation Heterosexual (finding) [facility] Clinical Notes 01-31-2022 to 04-17-2025 Note Date & Type Note Facility 04-17-2025 Procedure note [facility] 03-18-2025 Evaluation note Diagnosis Onset Date Resolution Asthma chronic March 18 10:50am Nicotine dependence, cigarettes, uncomplicated chronic March 18, 2025 10:50am Obesity chronic March 18 10:50am FELISHA (obstructive sleep apnea) chronic March 18, 2025 10:50am [facility] Work Phone: [phone]) 844-759710-15-2024 [facility] Medical Records Department [address] [place] [address] History Physical Exam 07/08/24730 MR#: [id number] Acct: [id number] Name: PINEDA LUIS Rep #: [id number] : 1970 53 From: Max Cohen MD PCP: [facility] Status:[facility] Location: [place] [address] HPI - General General Date of Admission: 07/08/24 Date of Service: 07/08/24 Chief Complaint: diarrhea HPI Narrative PINEDA LUIS, is a 53 M who presents for colonoscopy. H/o alternating diarrhea and constipation PFSH Medical History Wears glasses PTSD (post-traumatic stress disorder) Pulmonary nodule Bulging disc Degenerative disk disease Contact with and (suspected) exposure to other viral communicable diseases Asthma Lung disease HTN (hypertension) Home Medications ???Medication ???Instructions ???Recorded ???Last Taken ???Type atorvastatin 20 mg tablet 20 mg PO DAILY 09/13/20 07/07/24 History metformin 500 mg tablet,extended 500 mg PO QDAY 06/19/24 07/07/24 History release 24 hr amlodipine 10 mg tablet 10 mg PO DAILY 07/03/24 07/07/24 History Allergy/AdvReac Type Severity Reaction Status Date / Time codeine Allergy Other Verified 07/03/24 14:16 Family History Mother Myocardial infarction Liver cancer Lymph node cancer Lung cancer Surgical History History of foot surgery History of eye surgery History of nasal surgery h/o right shoulder arthroscopy H/O umbilical hernia repair History of cholecystectomy History of tonsillectomy Social History household members: spouse and children housing: house Smoking Status: Current every day smoker tobacco type: cigarettes alcohol intake: current alcohol intake frequency: a few times a week what type of physical activity do you participate in: walking do you feel safe at home: Yes ROS Constitutional Constitutional: Reports systems reviewed and no addt'l complaints, except as documented Eyes Eyes: Reports systems reviewed and no addt'l complaints, except as documented ENT HEENT: Reports systems reviewed and no addt'l complaints, except as documented Cardiovascular Cardiovascular: Reports systems reviewed and no addt'l complaints, except as documented Respiratory/Chest Respiratory/Chest: Reports systems reviewed and no addt'l complaints, except as documented Gastrointestinal Gastrointestinal: Reports systems reviewed and no addt'l complaints, except as documented Vital Signs Vital Signs Vital Signs: 07/08/24 06:49 07/08/24 06:51 07/08/24 07:12 Temperature 98.0 F 98.0 F Temperature Source Temporal Pulse Rate 68 68 Respiratory Rate 16 16 Respiratory Pattern Normal Blood Pressure 117/80 117/80 Blood Pressure Mean 92 Blood Pressure Source Monitor Blood Pressure Position Semi-Fowlers Blood Pressure Location Right Arm Pulse Ox 97 97 Oxygen Delivery Method Room Air Weight Weight: 226 lb 3.108 oz Body Mass Index (BMI) 32.4 Physical Exam Const alert, oriented x3 and no apparent distress General Appearance: cooperative HEENT normocephalic Eyes PERRL Neck full ROM Resp Effort and Inspection: symmetric chest movement Results Lab / Micro Data Labs: Laboratory Results - last 24 hr 07/08/24 06:47: POC Glucose 114 H Assessment Plan Assessment/Plan (1) Colon cancer screening: PLAN: Plan colonoscopy today. Risks and benefits of procedure discussed. Patient wishes to proceed. Charges/Coding Visit Charges Inpatient E M: 98581 Init Hosp L1 07/08/24 0733 Cosigner Signature (if applicable): CC: Dr. Max Cohen MD; [facility]06-03-2024 NoteHNO ID: [id number] Author: GABRIELA VANG APRN.FEEDER LOADER Service: ? Author Type: Nurse Practitioner Type: Progress Notes Filed: 02/25/2024 11:06 Note Text: Subjective Diarrhea Associated symptoms include abdominal pain. Pertinent negatives include no vomiting. Pineda Luis is a 53 year old male who presents with abdominal pain, diarrhea and fever. Symptoms started 2 days ago. States he took imodium for diarrhea but it has persisted. Complains of fatigue and states he slept 60 of the last 72 hours. Denies back pain or urinary symptoms. Describes pain as cramping. States he has dark urine today, denies burning or frequency. Review of Systems Constitutional: Positive for fever. Respiratory: Negative. Cardiovascular: Negative. Gastrointestinal: Positive for abdominal pain and diarrhea. Negative for blood in stool, nausea and vomiting. Genitourinary: Negative for dysuria, flank pain, frequency, hematuria and urgency. BP 122/60 Pulse 66 Temp 36.4 ?C (97.5 ?F) Resp 16 Wt 103.3 kg (227 lb 11.8 oz) SpO2 98% BMI 31.76 kg/m? 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/07/2015 Eczema, dyshidrotic 05/07/2015 HTN (hypertension) 05/07/2015 Obstructive sleep apnea 05/07/2015 On CPAP Positive PPD, treated 05/07/2015 PTSD (post-traumatic stress disorder) 05/07/2015 Seasonal allergies 05/07/2015 Smoker 05/07/2015 Started at age 14 up to a 1 PPD (had quit for about 10 yrs) PAST SURGICAL HISTORY Procedure Laterality Date EGD TRANSORAL BIOPSY SINGLE/MULTIPLE 06/21/15 gastritis HERNIA REPAIR HX 07/13/15 LAPS SURG CHOLECYSTECTOMY W/CHOLANGIOGRAPHY 07/13/15 normal IOC PAST SURGICAL HISTORY OF 2006 ventral hernia repair PAST SURGICAL HISTORY OF 2012 partial amputation of left great toe REMOVAL OF TONSILS,12+ Y/O 20 yo Tonsillectomy ALLERGIES Codeine MEDICATIONS amLODIPine (NORVASC) 5 mg tablet atorvastatin (LIPITOR) 20 mg tablet cholecalciferol (VITAMIN D3) 50 mcg (2,000 unit) tablet benzonatate (TESSALON PERLE) 100 mg capsule Take 1-2 capsules tid prn, no more than 6 in 24 hours. (Patient not taking: Reported on 02/25/2024) loratadine (CLARITIN) 10 mg tablet Take 10 mg by mouth once daily. (Patient not taking: Reported on 02/25/2024) FAMILY HISTORY Problem Relation Age of Onset Coronary Artery Disease Mother 45 Diabetes Mother Cancer Mother cervical Cancer Paternal Grandfather bone cancer Social History Tobacco Use Smoking status: Every Day Packs/day: 1.00 Years: 35.00 Additional pack years: 0.00 Total pack years: 35.00 Types: Cigarettes Smokeless tobacco: Never Substance Use Topics Alcohol use: Yes Alcohol/week: 1.0 standard drink of alcohol Types: 1 Cans of Beer (12oz) per week Comment: 2-3 beers/week Drug use: No Objective Physical Exam Vitals and nursing note reviewed. Constitutional: General: He is not in acute distress. Appearance: Normal appearance. Cardiovascular: Rate and Rhythm: Normal rate. Pulmonary: Effort: Pulmonary effort is normal. Abdominal: General: Bowel sounds are increased. Tenderness: There is abdominal tenderness in the right upper quadrant and right lower quadrant. There is guarding. Neurological: Mental Status: He is alert. ASSESSMENT/PLAN: 1. Abdominal pain, unspecified abdominal location - ICD9: 789.00, ICD10: R10.9 - offered urinalysis and stat labs through [facility], patient declined. - referred to ER for further evaluation. Patient very tender on right upper and lower quadrant on exam. Gabriela Vang APRN.[facility]06-03-2024 History of Present illness Narrative* Gabriela Vang APRN.[facility] - 02/25/2024 11:02 AM EDT Subjective Diarrhea Associated symptoms include abdominal pain. Pertinent negatives include no vomiting. Pineda Luis is a 53 year old male who presents with abdominal pain, diarrhea and fever. Symptoms started 2 days ago. States he took imodium for diarrhea but it has persisted. Complains of fatigue and states he slept 60 of the last 72 hours. Denies back pain or urinary symptoms. Describes pain as cramping. States he has dark urine today, denies burning or frequency. Review of Systems Constitutional: Positive for fever. Respiratory: Negative. Cardiovascular: Negative. Gastrointestinal: Positive for abdominal pain and diarrhea. Negative for blood in stool, nausea andvomiting. Genitourinary: Negative for dysuria, flank pain, frequency, hematuria and urgency. BP 122/60 Pulse 66 Temp 36.4 C (97.5 F) Resp 16 Wt 103.3 kg (227 lb 11.8 oz) SpO2 98% BMI 31.76 kg/m 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/07/2015 Eczema, dyshidrotic 05/07/2015 HTN (hypertension) 05/07/2015 Obstructive sleep apnea 05/07/2015 On CPAP Positive PPD, treated 05/07/2015 PTSD (post-traumatic stress disorder) 05/07/2015 Seasonal allergies 05/07/2015 Smoker 05/07/2015 Started at age 14 up to a 1 PPD (had quit for about 10 yrs) PAST SURGICAL HISTORY Procedure Laterality Date EGD TRANSORAL BIOPSY SINGLE/MULTIPLE 06/21/15 gastritis HERNIA REPAIR HX 07/13/15 LAPS SURG CHOLECYSTECTOMY W/CHOLANGIOGRAPHY 07/13/15 normal IOC PAST SURGICAL HISTORY OF 2006 ventral hernia repair PAST SURGICAL HISTORY OF 2012 partial amputation of left great toe REMOVAL OF TONSILS,12+ Y/O 20 yo Tonsillectomy ALLERGIES Codeine MEDICATIONS amLODIPine (NORVASC) 5 mg tablet atorvastatin (LIPITOR) 20 mg tablet cholecalciferol (VITAMIN D3) 50 mcg (2,000 unit) tablet benzonatate (TESSALON PERLE) 100 mg capsule Take 1-2 capsules tid prn, no more than 6 in 24 hours. (Patient not taking: Reported on 02/25/2024) loratadine (CLARITIN) 10 mg tablet Take 10 mg by mouth once daily. (Patient not taking: Reported on02/25/2024) FAMILY HISTORY Problem Relation Age of Onset Coronary Artery Disease Mother 45 Diabetes Mother Cancer Mother cervical Cancer Paternal Grandfather bone cancer Social History Tobacco Use Smoking status: Every Day Packs/day: 1.00 Years: 35.00 Additional pack years: 0.00 Total pack years: 35.00 Types: Cigarettes Smokeless tobacco: Never Substance Use Topics Alcohol use: Yes Alcohol/week: 1.0 standard drink of alcohol Types: 1 Cans of Beer (12oz) per week Comment: 2-3 beers/week Drug use: No Objective Physical Exam Vitals and nursing note reviewed. Constitutional: General: He is not in acute distress. Appearance: Normal appearance. Cardiovascular: Rate and Rhythm: Normal rate. Pulmonary: Effort: Pulmonary effort is normal. Abdominal: General: Bowel sounds are increased. Tenderness: There is abdominal tenderness in the right upper quadrant and right lower quadrant. There is guarding. Neurological: Mental Status: He is alert. ASSESSMENT/PLAN: 1. Abdominal pain, unspecified abdominal location - ICD9: 789.00, ICD10: R10.9 - offered urinalysis and stat labs through [facility], patient declined. - referred to ER for further evaluation. Patient very tender on right upper and lower quadrant on exam. Gabriela Vang APRN.[employer] [facility]12[facility]2022 NoteHNO ID: [id number] Author: Thelma Coffey RRT Service: ? Author Type: Registered Resp Therapist Type: Progress Notes Filed: 08/29/2022 11:58 AM Note Text: PULM FUNCTION SMARTBLOCK: Spirometry w/BD: 1 DLCO: 1 LV - Box: [address] [place], [place] [address]12-06-2022 History of Present illness Narrative* Thelma Coffey RRT - 08/29/2022 11:57 AM EST PULM FUNCTION SMARTBLOCK: Spirometry w/BD: 1 DLCO: 1 LV - Box: 1 [facility] Instructions* Patient Instructions* Mali Tomlinson APRN.AILYN - 01/31/2022 7:58 PM EDT covid test ordered You will be notified in 24 -48 hours, results available on [facility] isolation until covid results are back Rest, [...] breath, inability to swallow. [facility]05[facility] History of Present illness Narrative* Mali Tomlinson APRN.CNP - 01/31/2022 7:54 PM EDT Subjective The history is provided by the patient. No bilingual speech language pathologist was used. HPI Pineda Luis is a 51 year old male who presents today for CC of cough, chest congestion andbody aches. He has tried sudafed, mucinesx without relief. He is a smoker. He does have an albuterol inhaler and has not used it. He has never been diagnosed with COPD BP 136/82 Pulse 99 Temp 37 C (98.6 F) (Tympanic) Resp 18 Wt 111.3 kg (245 lb 6.4 oz) HsJ153% BMI 34.23 kg/m Social History Tobacco Use [...] have confirmed and edited as necessary, the [facility] Review of Systems Constitutional: Positive for malaise/fatigue. [...] for higher level of care were discussed indetail warranting prompt ER evaluation. Mali Tomlnison APRN.[facility]* Diagnosis Cough- Primary Chest congestion Other symptoms involving respiratory system and chest Wheezing documented in [facility]* Diagnosis Onset Date Resolution Status Contact with and (suspected) exposure to other viral communicable diseases acute [facility] Work Phone: evaluation noteNo assessment information available [facility] Work Phone: evaluation note* Diagnosis Bronchitis, not specified as acute or chronic documented in this encounter [facility] note* Diagnosis Bronchitis, not specified as acute or chronic documented in this encounter [facility]* Diagnosis Abdominal pain, unspecified abdominal location- Primary documented in this encounter [facility] note* Diagnosis SOB (shortness of breath) Shortness of breath documented in this encounter [facility] note* Diagnosis Onset Date Resolution Status Admit Date Asthma acute March 18 10:50am Nicotine dependence, cigaret cynthia, uncomplicated acute March 18, 2025 10:50am Obesity acute March 18 10:50am FELISHA (obstructive sleep apnea) acute March 18, 2025 10:50am [facility] Work Phone: Reason for referral (narrative)No reason for referral information availableL[facility] Work Phone: Assessments Diagnosis 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 - Primary 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s Azoospermatism Azoospermia Summary Purpose Family History No Family History Records Found Relationship Condition Age at Onset Recorded Date/T jaime mother Myocardial infarction Unknown Malignant neoplasm of liver Unknown Malignant neoplasm of lymph node Unknown Relationship Condition Age at Onset Recorded Date/T jaime mother Myocardial infarction Unknown Malignant neoplasm of liver Unknown Malignant neoplasm of lymph node Unknown Malignant neoplasm of lung Unknown Advance Directives No Advanced Directives Records FoundDocuments on File Type Date Recorded Patient Rip Tailer Expl anation Advance Directive(s) 11/10/2016 5:47 AM Advance Directive Response Recorded Date/ Time Advance Directives No May 11:47am Living Will No November 02 4:03pm Power of Learning Consultant No November 02, 2020 4:03pm Advance Directive Response Recorded Date/ Time Advance Directives No May 10:47am Living Will No November 02 3:03pm Power of Learning Consultant No November 02, 2020 3:03pm Advance Directive Response Recorded Date/ Time Advance Directives No May 11:47am Chief Complaint and Reason for Visit Chief Complaint ANTIGEN COVID TEST/E XPOSURE RIGHT SHOULDER PAIN ENLARGED LYMPH NODES Reason for Visit Contact with and (márquez spected) exposure to other viral communicable diseases Chief Complaint RIGHT SHOULDER PAIN ENLARGED LYMPH NODES Chief Complaint RIGHT SHOULDER PAIN ENLARGED LYMPH NODES NECK PAIN Chief Complaint TOBACCO DEPENDENCE Chief Complaint TOBACCO DEPENDENCE RIGHT UPPER EXT CERVICAL RAD RIGHT UPPER EXT CERVICAL RAD Chief Complaint Admit Date Abnormal PFT March 18, 2025 10:5 0am Reason for Visit Admit Date Asthma March 18, 2025 10:5 0am Nicotine dependence, cigarettes, uncompl icated March 18, 2025 10:50am Obesity March 18, 2025 10:5 0am FELISHA (obstructive sleep apnea) March 18, 2025 10:50am Chief Complaint Admit Date Abnormal PFT March 18, 2025 10:5 0am J45.909 - Unspecified asthma, uncomplica slim April 15, 2025 12:29pm J45.909 - Unspecified asthma, uncomplica slim April 17, 2025 11:16am Additional Source Comments (unrecognized sect ion and content) No Status Records FoundNo Status Records FoundNo Status Records FoundNo Status Records FoundNo Status Records FoundNo Status Records Found INFORMATION SOURCE (unrecogn ized section and content) DATE CREATED AUTHOR 07/30/2018 [facility] DATE CREATED AUTHOR AUTHOR'S ORGANIZ ATION 08/09/2018 [facility] DATE CREATED AUTHOR AUTHOR'S ORGANIZ ATION 11/29/2021 [facility] DATE CREATED AUTHOR AUTHOR'S ORGANIZ ATION 08/30/2022 [facility] DATE CREATED AUTHOR AUTHOR'S ORGANIZ ATION 02/25/2024 [facility] DATE CREATED AUTHOR AUTHOR'S ORGANIZ ATION 05/14/2025 [facility] Source Comments (unrecognize d section and content) In the event this informatio n is protected by the Federal Confidentiality of Alcohol and Drug Abuse Patient Records regulations: The Federal rules restrict any use of the information to criminally investigate or prosecute any alcohol or drug abuse patient.[facility] HospitalIn the event this information is protected by the Federal Confidentiality of Alcohol and Drug Abuse Patient Records regulations: The Federal rules restrict any use of the information to criminally investigate or prosecute any alcohol or drug abuse patient.[facility] HospitalIn the event this information is protected by the Federal Confidentiality of Alcohol and Drug Abuse Patient Records regulations: The Federal rules restrict any use of the information to criminally investigate or prosecute any alcohol or drug abuse patient.[facility] HospitalIn the event this information is protected by the Federal Confidentiality of Alcohol and Drug Abuse Patient Records regulations: The Federal rules restrict any use of the information to criminally investigate or prosecute any alcohol or drug abuse patient.[facility] HospitalIn the event this information is protected by the Federal Confidentiality of Alcohol and Drug Abuse Patient Records regulations: The Federal rules restrict any use of the information to criminally investigate or prosecute any alcohol or drug abuse patient.[facility] HospitalIn the event this information is protected by the Federal Confidentiality of Alcohol and Drug Abuse Patient Records regulations: The Federal rules restrict any use of the information to criminally investigate or prosecute any alcohol or drug abuse patient.[facility] Reason for Visit (unrecogniz ed section and content) Reason Comments Cough cough, St, CONNELLY x 5 da ys Reason Comments Spirometry Specialty Diagnoses / Procedures Referred By Contac t Referred To Contact [facility] Diagnoses Bronchitis, not specified as acute or chronic Procedures SPIROMETRY - BASELINE AND POST DILATOR BRNCDILAT RSPSE SPMTRY PRE&POST-BRNCDILAT ADMN [facility], Provider NON-STAFF PROVIDER [facility] [place] [address] [place] [address] Referral ID Status Reason Start Date Expiration Date V isits Requested Visits Authorized [id number] Closed Auto-Generate d Referral 08/13/2022 09/23/2022 1 1 Specialty Diagnoses / Procedures Referred By Contac t Referred To Contact [facility] Diagnoses Bronchitis, not specified as acute or chronic Procedures LUNG VOLUMES [facility], Provider NON-STAFF PROVIDER [facility] [place] [address] [place] [address] Referral ID Status Reason Start Date Expiration Date V isits Requested Visits Authorized [id number] Closed Auto-Generate d Referral 08/13/2022 09/23/2022 1 1 Specialty Diagnoses / Procedures Referred By Contac t Referred To Contact [facility] Diagnoses Bronchitis, not specified as acute or chronic Procedures LUNG DIFFUSION CAPACITY (DLCO) DIFFUSING CAPACITY [facility], Provider NON-STAFF PROVIDER [facility] [place] [address] [place] [address] Referral ID Status Reason Start Date Expiration Date V isits Requested Visits Authorized [id number] Closed Auto-Generate d Referral 08/13/2022 09/23/2022 1 1 Reason Comments Diarrhea Fever x3 day Goals (unrecognized section and content) Goals may be documented in a n alternate sectionGoals may be documented in an alternate sectionGoals may be documented in an alternate sectionGoals may be documented in an alternate sectionGoals may be documented in an alternate sectionGoals may be documented in an alternate sectionGoals may be documented in an alternate section Care Teams (unrecognized sec tion and content) Team Status: Active Member Role Status Dates Dr. Lucero James MD Family Provider Active [facility] Primary Care Provider Active Team Status: Inactive Member Role Status Dates [facility] Primary Care Provider Active DANA EARL Attending Provider, Referring Provider Ac tive Team Status: Active Member Role Status Dates [facility] Primary Care Provider Active Dr. Elio Prieto MD Referring Provider, Other Pr ovider Active Dr. Turner Beltre MD Attending Provider Active Team Status: Inactive Member Role Status Dates [facility] Primary Care Provider Active Dr. Elio Prieto MD Attending Provider, Referrin g Provider Active Fill Technician Relationship Specialty Start Date End Date Víctor Liao MD [address] [place] [address] [address] [place] [address] PCP - General Internal Medicine 06/18/24 Team Status: Inactive Member Role Status Dates [facility] Primary Care Provider Active Start: March 18, 2025 End: March 18, 2025 [facility] Referring Provider Active Start: 2024 End: March 18, 2025 Dr. Festus Gerardo , Attending Provider Active S tart: March 18, 2025 End: March 18, 2025 Team Status: Active Member Role/Relationship Status Dates [facility] Primary Care Provider Active Team Status: Inactive Member Role/Relationship Status Dates [facility] Primary Care Provider Active Start: March 18, 2025 End: March 18, 2025 [facility] Referring Provider Active Start: 2024 End: March 18, 2025 Dr. Festus Gerardo , Attending Provider Active S tart: March 18, 2025 End: March 18, 2025 Team Status: Inactive Member Role/Relationship Status Dates [facility] Primary Care Provider Active Start: April 15, 2025 End: April 15, 2025 Dr. Festus Gerardo , Attending Provider Active S tart: April 15, 2025 End: April 15, 2025 Dr. Festus Gerardo DO Referring Provider Active S tart: April 15, 2025 End: April 15, 2025 Team Status: Active Member Role/Relationship Status Dates [facility] Primary Care Provider Active Start: April 17, 2025 Dr. Festus Gerardo , Attending Provider Active S tart: April 17, 2025 Dr. Festus Gerardo , Referring Provider Active S tart: April 17, 2025 Dr. Festus Gerardo , Other Provider Active Start : April 17, 2025 FOR RECORDS PERTAINING TO PATIENTS WHO ARE [...] BE BASED ON THE PRIMARY CLINICAL RECORDS. [facility] [employer] [facility]. provides no warranty or guarantee of the accuracy or completeness of information in this document.
== END | disposition home or self-care (01) ==
LOC: CT 08:18
PROVIDERS: Referring Provider Internal Medicine Critical Care Medicine; Visit Provider Internal Medicine Critical Care Medicine
DX: F17.210 Nicotine dependence, cigarettes, uncomplicated (principal)
CPT/HCPCS: 71271